=== PATIENT | male | born 1935 | race Caucasian/White ===

== ENCOUNTER 2017-09-20 14:00 | Outpatient (RCR) | payer MEDICARE, OTHER, SELFPAY | END 2017-09-20 23:59 | LOC: OT 14:00 | PROVIDERS: Visit Provider Surgery Plastic and Reconstructive Surgery | DX: S62.609A Fracture of unspecified phalanx of unspecified finger, initial encounter for closed fracture (principal) | CPT/HCPCS: G8990; G8991; G8992; 97140; 97165 ==

== ENCOUNTER 2017-10-18 11:00 | Outpatient (RCR) | payer MEDICARE, OTHER, SELFPAY | END 2017-10-18 11:03 | disposition home or self-care (01) | LOC: OT 11:00 | PROVIDERS: Visit Provider Surgery Plastic and Reconstructive Surgery | DX: S62.609A Fracture of unspecified phalanx of unspecified finger, initial encounter for closed fracture (principal) | CPT/HCPCS: 97140; 97164 ==

== ENCOUNTER → 2017-11-20 10:52 | Outpatient (CLI) | payer MEDICARE, OTHER, SELFPAY | PROVIDERS: PCP Internal Medicine; Visit Provider Internal Medicine | DX: I49.9 Cardiac arrhythmia, unspecified (principal); J44.1 Chronic obstructive pulmonary disease with (acute) exacerbation | CPT/HCPCS: 93005 ==

== ENCOUNTER → 2017-11-27 08:55 | Outpatient (POV) | payer MEDICARE, OTHER, SELFPAY | PROVIDERS: PCP Internal Medicine; Visit Provider Internal Medicine | DX: Z00.00 Encounter for general adult medical examination without abnormal findings (principal) ==

== ENCOUNTER 2017-12-14 11:30 | Observation (INO) | payer MEDICARE, OTHER, SELFPAY ==
[2017-12-14 11:37] VITALS: BP 135/71; PULSE 69; RESP 22; TEMP 36.3; O2SAT 95; BMI 31.1
--- NOTE | 2017-12-14 11:54 | XR_ITS ---
XR chest 2V COMPARISON: PA and lateral chest 06/25/2017 HISTORY: Persistent cough TECHNIQUE: PA and lateral chest FINDINGS: The lung fairbanks are well expanded. Again noted is the pleural pericardial scarring along left heart border and likely involving the lingula. In this is well seen on previous CT scan the chest 06/21/2017. The lung fairbanks appear to be clear of active infiltrate. There is mild relies cardio megaly with aortic tortuosity but there is no evidence of failure, there is no pleural fluid. There are small calcified right hilar nodes. There are prominent degenerative changes of both shoulders. IMPRESSION: Mild to moderate cardiomegaly, chronic scarring at the left lung base, no acute chest pathology noted
[2017-12-14 12:28] LABS: Eosinophils % 0.3 % (0.1-12.0); Hematocrit 48.5 % (42.0-52.0); Hemoglobin 15.3 g/dL (14.1-18.0); Lymphocytes # 0.4 K/mm3 (0.7-4.5); Lymphocytes % 3.9 K/mm3 (10-50); Mean Corpuscular HGB Conc 31.6 g/dL (31.8-35.4); Mean Corpuscular Hemoglobin 28.8 pg (27.0-31.2); Mean Corpuscular Volume 91.2 fl (80-94); Mean Platelet Volume 8.2 fl (7.4-10.4); Monocytes # 0.6 K/mm3 (0.1-1.0); Monocytes % 4.8 % (1.7-9.3); Neutrophils # 10.3 K/mm3 (1.8-7.8); Neutrophils % 90.8 % (37.0-80.0); Platelet Count 162 K/mm3 (142-424); Red Blood Count 5.32 M/mm3 (4.60-6.20); White Blood Count 11.4 K/mm3 (4.8-10.8)
[2017-12-14 12:29] LABS: MANUAL DIFFERENTIAL MANUAL DIFFERENTIAL (MANUAL DIFF)
[2017-12-14 12:40] LABS: Alanine Aminotransferase 37 U/L (12-78); Albumin Level 3.6 gm/dL (3.4-5.0); Albumin/Globulin Ratio 1.1 (1.1-1.8); Alkaline Phosphatase 70 U/L (46-116); Anion Gap 8.3 mEq/L (5-15); Aspartate Amino Transferase 15 U/L (15-37); Bilirubin,Total 0.6 mg/dL (0.2-1.0); Blood Urea Nitrogen 21 mg/dL (7-18); Calcium 8.9 mg/dL (8.5-10.1); Carbon Dioxide 33 mmol/L (21.0-32.0); Chloride 102 mmol/L (98-107); Creatinine Clearance Estimated 73 mL/min (0-300); Creatinine,Serum 0.83 mg/dL (0.70-1.30); Estimated Glomerular Filt Rate 89 ml/min (>60); GFR (African American) 108 ML/MIN (>60); Globulin 3.3 gm/dl (1.3-3.2); Glucose 127 mg/dL (74-106); Potassium 4.3 mmoL/L (3.5-5.1); Sodium 139 mmol/L (136-145); Total Protein,Serum 6.9 gm/dL (6.4-8.2)
[2017-12-14 12:57] LABS: Mycoplasma Pneumo IGM (Rapid) Non-Reactive (Non-Reactiv)
[2017-12-14 13:00] VITALS: PULSE 65; PULSE 66; O2SAT 97
[2017-12-14 13:09] LABS: Lymphocytes % 5 % (10-50); Monocytes % 7 % (2-9); Neutrophils % 88 % (42-76); Total Cells Counted 100
[2017-12-14 13:10] LABS: Platelet Estimate Normal; RBC Morphology Normal
--- NOTE | 2017-12-14 13:42 | CA_ITS ---
PROCEDURE: 2-D M-mode and color Doppler study INDICATIONS FOR THE TEST: Chest pain COPD+ Heart Murmur Tobacco Smokingex Palpitations Fatigue Syncope Edema+ Hypertension+Diabetes Mellitus Rheumatic Fever SOB+CABRERA Obesity+Hyperlipidemia+ Family History HD Additional History FRANKLYN, arrhythmia PATIENT INFORMATION HEIGHT: 66 WEIGHT: 193 GENDER: Male B/P: 135/71 2-D/M-MODE INTERPRETATION: 2-D MEASUREMENTS OBSERVED VALUES IN CMS Right Ventricular Dimension (RVDd) 2.2 Interventricular Septum (Thickness)(IVsd) 1.5 Left Ventricular Internal Dimensions(LVIDd) 5.1 Left Ventricular Posterior Wall (Thickness)(LVPWd) 1.5 Aortic Root 2.9 Aortic Cusp Separation 2.0 Left Atrial Dimensions (LAD) 4.4 2D 1. Left atrium is mildly enlarged, left ventricle is normal size, mild concentric left ventricular hypertrophy, visually estimated ejection fraction of 55% with no obvious regional wall motion abnormality. 2. The right atrium and right ventricle are relatively normal size and function. 3. The aortic valve is minimally thickened and fibrosed. 4. The mitral and tricuspid valve leaflets are grossly normal. 5. The pulmonic valve is poorly visualized. 6. No significant pericardial effusion noted. DOPPLER INTERROGATION: Doppler interrogation of the aortic, mitral and tricuspid valvular presence of mild mitral and tricuspid regurgitation, tricuspid regurgitant jet velocity insufficient for calculation of the right ventricular systolic pressure, grade 1 diastolic dysfunction seen with tissue Doppler evidence of raised left atrial pressure. CONCLUSION: 1. Mildly enlarged left atrium, normal left ventricular size, mild concentric left ventricular hypertrophy, visually estimated ejection fraction 55% with no obvious regional wall motion abnormality, grade 1 diastolic dysfunction seen with tissue Doppler evidence of raised left atrial pressure. 2. Mild mitral and tricuspid regurgitation 3. No significant pericardial effusion noted.
--- NOTE | 2017-12-14 13:44 | HMH.HP ---
*Admission Date: 12/14/17 *Chief complaint: Persistent dyspnea/swelling *History of present illness: 82-year-old white male, long-standing history of emphysema with nocturnal oxygen requirement who has seen Dr. Gene Antony in the office for a couple of weeks for increasing COPD problems. He has been on amoxicillin and azithromycin with steroids orally and unfortunately has failed to improve. Came to the office today, tachypneic, dyspneic, admitted to hospital for IV therapy and enhanced pulmonary toilet. He states he has been sick over the past couple weeks. Notes that he is also had leg swelling which is unusual for him. [facility] History Medical History: Reports:: Hyperlipidemia, Hypertension Denies:: Cancer, Diabetes Mellitus Type 1, Diabetes Mellitus Type 2, MRSA Other Medical History: Reports: Arthritis Other Surgeries: Yes: Colonoscopy, EGD Amputation: No Fractures: No - *Social History Educational Level: Attended College Smoking Status: Former smoker Tobacco Type: cigarettes Alcohol Intake: never Occupational Status: retired Housing: house Household Members: spouse - Psychiatric History Expresses thoughts of harming self/others: None Suicide Plan Description: No Plan *Family Hx:: Asthma, Hyperlipidemia, Hypertension Review of Systems - Review of Systems Review of systems:: unable to obtain, other, pertinent systems reviewed and negative unless documented below - Constitutional Reports lack of energy, Reports malaise - Eyes Denies change in vision, Denies double vision - ENT Denies abnormal hearing - *Cardiovascular Reports shortness of breath, Reports shortness of breath with activity, Reports irregular heart rhythm, Reports leg swelling, Denies chest pain, Denies chest pain at rest, Denies lightheadedness, Denies shortness of breath when lying down, Denies rapid, pounding, or irregular heartbeat - *Respiratory Reports change in phlegm color, Reports chest congestion, Reports cough, Reports shortness of breath, Reports shortness of breath with activity, Reports excessive phlegm production - *Gastrointestinal Denies abdominal pain, Denies belching, Denies bloating, Denies heartburn, Denies vomiting blood, Denies black, tarry stools - *Genitourinary Denies difficulty urinating, Denies painful urination - *Musculoskeletal Denies abnormal walking, Denies joint pain - *Neurologic Denies abnormal walking, Denies abnormal hearing - Psychiatric Denies abnormal sleep pattern - Endocrine Denies cold intolerance, Denies excessive sweating - Hematologic/Lymphatic Denies easy bleeding, Denies easy bruising Meds Home Medications Medication Instructions Recorded Confirmed Type Albuterol Sulfate [Albuterol 2.5 mg IH BID PRN 12/14/17 12/14/17 History 0.083% 2.5mg/3mL neb] Aspirin [Aspirin 81mg chewable 81 mg PO DAILY 12/14/17 12/14/17 History tab] Azelastine HCl [Azelastine Nasal 0.1 % NS BID 12/14/17 12/14/17 History [place] 30mL Bottle] Bisoprolol Fumarate [Zebeta 5mg 2.5 mg PO DAILY 12/14/17 12/14/17 History tablet] Furosemide [Furosemide 40MG tAB] 40 mg PO DAILY PRN 12/14/17 12/14/17 History Lisinopril [Lisinopril 20mg Tab] 20 mg PO DAILY 12/14/17 12/14/17 History Multivitamin [One Daily] 1 each PO DAILY 12/14/17 12/14/17 History Naproxen Sodium 220 mg PO DAILY PRN 12/14/17 12/14/17 History Pantoprazole Sodium [Protonix 40mg 40 mg PO DAILY 12/14/17 12/14/17 History tablet] Potassium Chloride [Klor-con 20 20 meq PO DAILY 12/14/17 12/14/17 History mEq tablet] Rosuvastatin Calcium 20 mg PO DAILY 12/14/17 12/14/17 History diazePAM [diazePAM 5mg Tablet] 5 mg PO BID PRN 12/14/17 12/14/17 History predniSONE [Deltasone 10mg 10 mg PO DAILY 12/14/17 12/14/17 History tablet] Allergies Allergy/AdvReac Type Severity Reaction Status Date / Time DUST Allergy Unknown Uncoded 09/18/17 14:51 HAY Allergy Unknown Uncoded 09/18/17 14:51 Exam Vital signs and
--- NOTE | 2017-12-14 13:47 | P.HP_ITS ---
*Admission Date: 12/14/17 *Chief complaint: Persistent dyspnea/swelling *History of present illness: 82-year-old white male, long-standing history of emphysema with nocturnal oxygen requirement who has seen Dr. Gene Antony in the office for a couple of weeks for increasing COPD problems. He has been on amoxicillin and azithromycin with steroids orally and unfortunately has failed to improve. Came to the office today, tachypneic, dyspneic, admitted to hospital for IV therapy and enhanced pulmonary toilet. He states he has been sick over the past couple weeks. Notes that he is also had leg swelling which is unusual for him. [facility] History Medical History: Reports:: Hyperlipidemia, Hypertension Denies:: Cancer, Diabetes Mellitus Type 1, Diabetes Mellitus Type 2, MRSA Other Medical History: Reports: Arthritis Other Surgeries: Yes: Colonoscopy, EGD Amputation: No Fractures: No - *Social History Educational Level: Attended College Smoking Status: Former smoker Tobacco Type: cigarettes Alcohol Intake: never Occupational Status: retired Housing: house Household Members: spouse - Psychiatric History Expresses thoughts of harming self/others: None Suicide Plan Description: No Plan *Family Hx:: Asthma, Hyperlipidemia, Hypertension Review of Systems - Review of Systems Review of systems:: unable to obtain, other, pertinent systems reviewed and negative unless documented below - Constitutional Reports lack of energy, Reports malaise - Eyes Denies change in vision, Denies double vision - ENT Denies abnormal hearing - *Cardiovascular Reports shortness of breath, Reports shortness of breath with activity, Reports irregular heart rhythm, Reports leg swelling, Denies chest pain, Denies chest pain at rest, Denies lightheadedness, Denies shortness of breath when lying down , Denies rapid, pounding, or irregular heartbeat - *Respiratory Reports change in phlegm color, Reports chest congestion, Reports cough, Reports shortness of breath, Reports shortness of breath with activity, Reports excessive phlegm production - *Gastrointestinal Denies abdominal pain, Denies belching, Denies bloating, Denies heartburn, Denies vomiting blood, Denies black, tarry stools - *Genitourinary Denies difficulty urinating, Denies painful urination - *Musculoskeletal Denies abnormal walking, Denies joint pain - *Neurologic Denies abnormal walking, Denies abnormal hearing - Psychiatric Denies abnormal sleep pattern - Endocrine Denies cold intolerance, Denies excessive sweating - Hematologic/Lymphatic Denies easy bleeding, Denies easy bruising Meds Home Medications Medication Instructions Recorded Confirmed Type Albuterol Sulfate [Albuterol 2.5 mg IH BID PRN 12/14/17 12/14/17 History 0.083% 2.5mg/3mL neb] Aspirin [Aspirin 81mg chewable 81 mg PO DAILY 12/14/17 12/14/17 History tab] Azelastine HCl [Azelastine Nasal 0.1 % NS BID 12/14/17 12/14/17 History [place] 30mL Bottle] Bisoprolol Fumarate [Zebeta 5mg 2.5 mg PO DAILY 12/14/17 12/14/17 History tablet] Furosemide [Furosemide 40MG tAB] 40 mg PO DAILY PRN 12/14/17 12/14/17 History Lisinopril [Lisinopril 20mg Tab] 20 mg PO DAILY 12/14/17 12/14/17 History Multivitamin [One Daily] 1 each PO DAILY 12/14/17 12/14/17 History Naproxen Sodium 220 mg PO DAILY PRN 12/14/17 12/14/17 History Pantoprazole Sodium [Protonix 40mg 40 mg PO DAILY 12/14/17 12/14/17 History tablet]
[2017-12-14 15:30] VITALS: BP 134/71; PULSE 70; RESP 20; TEMP 36.9; O2SAT 96
--- NOTE | 2017-12-14 19:29 | PC.NURSE ---
report given to chapito
[2017-12-14 19:39] VITALS: BP 151/75; PULSE 68; RESP 20; TEMP 36.4; O2SAT 96
[2017-12-14 20:00] VITALS: O2SAT 96
[2017-12-14 20:23] VITALS: O2SAT 97
[2017-12-14 20:34] LABS: POC Glucose,Bedside 146 mg/dL (70-110)
[2017-12-15] VITALS (8 sets, daily range): BP systolic 98–156; BP diastolic 50–97; PULSE 62–85; RESP 20–22; TEMP 36.4–36.8; O2SAT 1–98
--- NOTE | 2017-12-15 03:49 | PC.NURSE ---
PATIENT HAS SLEPT ON AND OFF THIS SHIFT. CONTINUES WITH INTERMITTEN PRODUCTIVE COUGH WITH SMALL AMOUNTS OF THICK, YELLOW SPUTUM NOTED. PATIENT HAS SOA AND AUDIBLE WHEEZES ON EXERTION WITHOUT DISTRESS. AMBULATES INDEPENDENTLY IN ROOM. PATIENT CURRENTLY IN BED SLEEPING. NO OTHER PROBLEMS NOTED AT THIS TIME. VSS. WILL CONTINUE TO MONITOR.
[2017-12-15 07:15] LABS: POC Glucose,Bedside 129 mg/dL (70-110)
--- NOTE | 2017-12-15 07:18 | P.PN_ITS ---
Internal Medicine - PN: Subj *Date: 12/15/17 *Time: 07:17 Interval history: Patient's overall improvement in his level of dyspnea. He denies any shortness of breath with ambulating short distances this morning. Exam Vital signs and Labs for Last 24 Hours: Temp Pulse Resp BP Pulse Ox 97.6 F 75 20 156/97 98 12/15/17 04:00 12/15/17 06:12 12/15/17 04:00 12/15/17 04:00 12/15/17 06:12 Laboratory Results - last 24 hr 12/14/17 12:15: WBC 11.4 H, RBC 5.32, Hgb 15.3, Hct 48.5, MCV 91.2, MCH 28.8, MCHC 31.6 L, RDW 13.0, Plt Count 162, MPV 8.2, Neut % (Auto) 90.8 H, Lymph % ( Auto) 3.9 L, Leslie % (Auto) 4.8, Eos % (Auto) 0.3, Baso % (Auto) 0.0 L, Neut # ( Auto) 10.3 H, Lymph # (Auto) 0.4 L, Leslie # (Auto) 0.6, Eos # (Auto) 0.0, Baso # (Auto) 0.0, Total Counted 100, Neutrophils % (Manual) 88 H, Lymphocytes % ( Manual) 5 L, Monocytes % (Manual) 7, Platelet Estimate Normal, RBC Morphology Normal 12/14/17 12:15: Sodium 139, Potassium 4.3, Chloride 102, Carbon Dioxide 33 H, Anion Gap 8.3, BUN 21 H, Creatinine 0.83, Estimated Creat Clear 73, Estimated GFR 89, Est GFR ( Amer) 108, Glucose 127 H, Calcium 8.9, Total Bilirubin 0.6, AST 15, ALT 37, Alkaline Phosphatase 70, Total Protein 6.9, Albumin 3.6, Globulin 3.3 H, Albumin/Globulin Ratio 1.1 12/14/17 12:15: Mycoplasma pneumon IgM Non-reactive 12/14/17 12:30: Influenza Type A Ag Negative, Influenza Type B Ag Negative 12/14/17 20:16: POC Glucose 146 12/15/17 07:02: POC Glucose 129 I & O for Last 24 hours: Intake & Output 03/14/18 12/13/17 12/14/17 12/15/17 11:59 11:59 11:59 11:59 Intake Total 2091 / 2091 Output Total 3450 / 3450 Balance -1358 / -1358 Weight 193 lb 4 oz Microbiology Reports for the Last 24 Hours: Microbiology 12/14/17 17:00 Sputum - Expectorated Sputum Gram Stain - Final Narrative: He appears comfortable. He has some mild conversational dyspnea. Lung exam reveals diffuse wheezes Assessment and Plan (1) COPD with acute exacerbation Current visit: Yes Status: Acute Category: Medical Code(s): J44.1 - Chronic obstructive pulmonary disease with (acute) exacerbation (2) Peripheral edema Current visit: Yes Status: Acute Category: Medical Code(s): R60.9 - Edema , unspecified (3) History of irregular heartbeat Current visit: Yes Status: Acute Category: Medical Code(s): Z86.79 - Personal history of other diseases of the circulatory system (4) Obstructive sleep apnea Current visit: Yes Status: Acute Category: Medical Code(s): G47.33 - Obstructive sleep apnea (adult) (pediatric) (5) Hypertension, essential Current visit: Yes Status: Acute Category: Medical Code(s): I10 - Essential (primary) hypertension (6) Generalized anxiety disorder Current visit: Yes Status: Acute Category: Medical Code(s): F41.1 - Generalized anxiety disorder - Assessment and plan all Dx Assessment and Plan for all problems:: No change to medical care. Patient showing signs of early improvement.
--- NOTE | 2017-12-15 07:30 | PC.NURSE ---
REPORT GIVEN TO Marlee MENARD W/C
[2017-12-15 07:57] LABS: Alanine Aminotransferase 34 U/L (12-78); Albumin Level 3.3 gm/dL (3.4-5.0); Albumin/Globulin Ratio 0.9 (1.1-1.8); Alkaline Phosphatase 59 U/L (46-116); Anion Gap 11.4 mEq/L (5-15); Aspartate Amino Transferase 10 U/L (15-37); Bilirubin,Total 0.6 mg/dL (0.2-1.0); Blood Urea Nitrogen 17 mg/dL (7-18); Calcium 8.7 mg/dL (8.5-10.1); Carbon Dioxide 32 mmol/L (21.0-32.0); Chloride 101 mmol/L (98-107); Creatinine Clearance Estimated 73 mL/min (0-300); Estimated Glomerular Filt Rate 81 ml/min (>60); GFR (African American) 98 ML/MIN (>60); Globulin 3.5 gm/dl (1.3-3.2); Glucose 139 mg/dL (74-106); Potassium 4.4 mmoL/L (3.5-5.1); Sodium 140 mmol/L (136-145); Total Protein,Serum 6.8 gm/dL (6.4-8.2)
[2017-12-15 08:03] LABS: Basophils % 0.1 % (0.1-2.0); Eosinophils % 0.1 % (0.1-12.0); Hematocrit 48.9 % (42.0-52.0); Hemoglobin 15.4 g/dL (14.1-18.0); Lymphocytes # 0.5 K/mm3 (0.7-4.5); Mean Corpuscular HGB Conc 31.5 g/dL (31.8-35.4); Mean Corpuscular Hemoglobin 28.9 pg (27.0-31.2); Mean Corpuscular Volume 91.5 fl (80-94); Mean Platelet Volume 8.6 fl (7.4-10.4); Monocytes # 0.3 K/mm3 (0.1-1.0); Monocytes % 2.1 % (1.7-9.3); Neutrophils % 93.7 % (37.0-80.0); Platelet Count 168 K/mm3 (142-424); Red Blood Count 5.34 M/mm3 (4.60-6.20); White Blood Count 11.7 K/mm3 (4.8-10.8)
[2017-12-15 08:32] LABS: MANUAL DIFFERENTIAL MANUAL DIFFERENTIAL (MANUAL DIFF)
[2017-12-15 09:43] LABS: Lymphocytes % 3 % (10-50); Neutrophils % 97 % (42-76); Platelet Estimate Normal; RBC Morphology Normal; Total Cells Counted 100
[2017-12-15 11:53] LABS: POC Glucose,Bedside 149 mg/dL (70-110)
--- NOTE | 2017-12-15 13:16 | HMH.PHAVTE ---
[facility] Pharmacy VTE Monitoring - Patient Demographics Admission date: 12/15/17 Report Date: 12/15/17 Time: 13:17 Allergies/Adverse Reactions: Patient Allergies DUST Allergy (Unknown, Uncoded 09/18/17 14:51) HAY Allergy (Unknown, Uncoded 09/18/17 14:51) Height: 1.68 m Weight: 87.657 kg Patient Problems: Current Active Problems COPD with acute exacerbation (Acute) Peripheral edema (Acute) History of irregular heartbeat (Acute) Obstructive sleep apnea (Acute) Hypertension, essential (Acute) Generalized anxiety disorder (Acute) - VTE Risk Labs: VTE Related Lab Results Hgb 15.4 g/dL (14.1-18.0) 12/15/17 06:05 Hct 48.9 % (42.0-52.0) 12/15/17 06:05 Plt Count 168 K/mm3 (142-424) 12/15/17 06:05 BUN 17 mg/dL (7-18) 12/15/17 06:00 Creatinine 0.90 mg/dL (0.70-1.30) 12/15/17 06:00 Estimated Creat Clear 73 mL/min (0-300) 12/15/17 06:00 VTE Score: 3 VTE Risk Level: Low Risk - Prophylaxis Location of Applied Device: Refused - VTE Diagnosis Confirmed Comment: JULIENNE PUGH ORDERED
[2017-12-15 16:38] LABS: POC Glucose,Bedside 167 mg/dL (70-110)
--- NOTE | 2017-12-15 18:58 | PC.NURSE ---
Report to be given to Marlee Ron RN
[2017-12-16] VITALS (8 sets, daily range): BP systolic 119–154; BP diastolic 71–77; PULSE 60–83; RESP 18–21; TEMP 36.2–36.5; O2SAT 90–96
[2017-12-16 00:39] LABS: POC Glucose,Bedside 167 mg/dL (70-110)
--- NOTE | 2017-12-16 03:39 | PC.NURSE ---
NO COMPLAINTS STATED. TOLERATED 1LNC WELL. SCATTERED RHONCHI AND WHEEZING NOTED ON AUSCULTATION OF LUNG SOUNDS. VSS. WILL CONTINUE MONITOR.
[2017-12-16 06:37] LABS: POC Glucose,Bedside 134 mg/dL (70-110)
--- NOTE | 2017-12-16 07:16 | PC.NURSE ---
REPORT GIVEN TO Marlee MENARD W/C
--- NOTE | 2017-12-16 08:31 | HMH.ACPN2 ---
Internal Medicine - PN: Subj *Date: 12/16/17 *Time: 08:31 Interval history: Patient reports feeling the same today as he did yesterday morning. His cough is now productive of large amounts of cohen to dark brown sputum. He does have dyspnea with exertion about the room. Exam Vital signs and Labs for Last 24 Hours: Temp Pulse Resp BP Pulse Ox 97.4 F L 83 20 121/72 93 L 12/16/17 07:37 12/16/17 07:37 12/16/17 07:37 12/16/17 07:37 12/16/17 07:37 Laboratory Results - last 24 hr 12/15/17 06:05: WBC 11.7 H, RBC 5.34, Hgb 15.4, Hct 48.9, MCV 91.5, MCH 28.9, MCHC 31.5 L, RDW 13.0, Plt Count 168, MPV 8.6, Neut % (Auto) 93.7 H, Lymph % (Auto) 4.0 L, [place] % (Auto) 2.1, Eos % (Auto) 0.1, Baso % (Auto) 0.1, Neut # (Auto) 11.0 H, Lymph # (Auto) 0.5 L, Stephen[place] # (Auto) 0.3, Eos # (Auto) 0.0, Baso # (Auto) 0.0, Total Counted 100, Neutrophils % (Manual) 97 H, Lymphocytes % (Manual) 3 L, Platelet Estimate Normal, RBC Morphology Normal 12/15/17 11:38: POC Glucose 149 12/15/17 16:07: POC Glucose 167 12/15/17 21:17: POC Glucose 167 12/16/17 05:50: POC Glucose 134 I & O for Last 24 hours: Intake & Output 12/13/17 12/14/17 12/15/17 12/16/17 11:59 11:59 11:59 11:59 Intake Total 2572 / 2572 2459 / 2459 Output Total 3450 / 3450 3725 / 3725 Balance -878 / -878 -1266 / -1266 Weight 193 lb 4 oz 193 lb 4 oz Microbiology Reports for the Last 24 Hours: Microbiology 12/14/17 17:00 Sputum - Expectorated Sputum Gram Stain - Final 12/14/17 17:00 Sputum - Expectorated Sputum Sputum Culture - Final Normal Respiratory Disha 12/14/17 12:15 Blood Blood Culture - Preliminary NO GROWTH AFTER 24 HOURS 12/14/17 12:15 Blood Blood Culture - Preliminary NO GROWTH AFTER 24 HOURS Narrative: He sitting up comfortably on the side of the bed. Lung exam is unchanged from yesterday with diffuse rhonchi and expiratory wheezes. Aeration may be slightly improved. Heart has a regular rate and rhythm. Assessment and Plan (1) COPD with acute exacerbation Current visit: Yes Status: Acute Category: Medical Code(s): J44.1 - Chronic obstructive pulmonary disease with (acute) exacerbation (2) Peripheral edema Current visit: Yes Status: Acute Category: Medical Code(s): R60.9 - Edema, unspecified (3) History of irregular heartbeat Current visit: Yes Status: Acute Category: Medical Code(s): Z86.79 - Personal history of other diseases of the circulatory system (4) Obstructive sleep apnea Current visit: Yes Status: Acute Category: Medical Code(s): G47.33 - Obstructive sleep apnea (adult) (pediatric) (5) Hypertension, essential Current visit: Yes Status: Acute Category: Medical Code(s): I10 - Essential (primary) hypertension (6) Generalized anxiety disorder Current visit: Yes Status: Acute Category: Medical Code(s): F41.1 - Generalized anxiety disorder - Assessment and plan all Dx Assessment and Plan for all problems:: Continue current medical care and encourage ambulation
[2017-12-16 12:02] LABS: POC Glucose,Bedside 153 mg/dL (70-110)
[2017-12-16 17:02] LABS: POC Glucose,Bedside 144 mg/dL (70-110)
--- NOTE | 2017-12-16 17:51 | PC.NURSE ---
Wheezes and rhonchi noted t/o lungs. Pt remains on 1L nasal cannula w/ o2 sats running in mid 90's. He reports a productive cough w/thick greenish yellow sputum. PRN cough meds administered x2 thus far. He has ambulated in room with some shortness of breath noted. No other concerns at this time. Will continue to monitor.
[2017-12-17] VITALS (9 sets, daily range): BP systolic 119–149; BP diastolic 55–91; PULSE 60–98; RESP 20–22; TEMP 36.3–36.6; O2SAT 86–94; BMI 31.0
[2017-12-17 01:50] LABS: POC Glucose,Bedside 184 mg/dL (70-110)
--- NOTE | 2017-12-17 04:09 | PC.NURSE ---
REQUESTED PRN COUGH MEDICATION, MEDICATED PT WITH PRN COUGH MED, NO FURTHER COMPLAINTS STATED FOLLOWING ADMINISTRATION. PRODUCTIVE COUGH WAS NOTED WITH GREEN, THICK SPUTUM THIS SHIFT. 1LNC TOLERATED WELL. RHONCHI AUSCULTATED T/O WITH SCATTERED WHEEZING PER AUSCULTATION OF LUNG SOUNDS. FOLLOWING AMBULATING IN ROOM, PT WAS STATED SOA, PT REQUESTED PRN BREATHING TREATMENT, WITH REST AND BREATHING TREATMENT PT STATED I FEEL BETTER. I AM NOT SOA LIKE I WAS. +1 EDEMA NOTED ON LLE. VSS. WILL CONTINUE TO MONITOR.
[2017-12-17 06:25] LABS: POC Glucose,Bedside 227 mg/dL (70-110)
--- NOTE | 2017-12-17 07:17 | PC.NURSE ---
REPORT GIVEN TO Adelina KRUEGER W/C
--- NOTE | 2017-12-17 07:21 | XR_ITS ---
XR chest 2V COMPARISON: PA and lateral chest 12/14/2017 HISTORY: Wheezing, shortness of breath TECHNIQUE: PA and lateral chest FINDINGS: There is a somewhat poor inspiration. Again noted is pleural pericardial scarring along left heart border. The lung [place] are clear of active infiltrate. There is mild thickening of the major fissure however this is been noted previously. Cardiac size is likely normal considering the poor inspiration. There are prominent degenerative changes of both shoulders with high riding humeral heads and marked narrowing of sclerosis of the glenohumeral joints. IMPRESSION: Nonacute chest findings
--- NOTE | 2017-12-17 08:10 | P.PN_ITS ---
Internal Medicine - PN: Subj *Date: 12/17/17 *Time: 08:56 Interval history: No events overnight but he reports that he still doesn't feel much better due to dyspnea. Cough is productive. He denies pain. Exam Vital signs and Labs for Last 24 Hours: Temp Pulse Resp BP Pulse Ox 97.6 F 64 20 140/71 92 L 12/17/17 07:30 12/17/17 07:30 12/17/17 07:30 12/17/17 07:30 12/17/17 07:30 Laboratory Results - last 24 hr 12/16/17 11:53: POC Glucose 153 12/16/17 16:44: POC Glucose 144 12/16/17 20:17: POC Glucose 184 12/17/17 06:06: POC Glucose 227 I & O for Last 24 hours: Intake & Output 12/14/17 12/15/17 12/16/17 12/17/17 11:59 11:59 11:59 11:59 Intake Total 2572 / 2572 2459 / 2459 2333 / 2333 Output Total 3450 / 3450 3725 / 3725 3700 / 3700 Balance -878 / -878 -1266 / -1266 -1367 / -1367 Weight 193 lb 4 oz 193 lb 4 oz Microbiology Reports for the Last 24 Hours: Microbiology 12/14/17 12:15 Blood Blood Culture - Preliminary NO GROWTH AFTER 48 HOURS 12/14/17 12:15 Blood Blood Culture - Preliminary NO GROWTH AFTER 48 HOURS 12/14/17 17:00 Sputum - Expectorated Sputum Gram Stain - Final 12/14/17 17:00 Sputum - Expectorated Sputum Sputum Culture - Final Normal Respiratory Disha Narrative: Pleasant male, upright on bedside eating breakfast. Heart with RRR, lungs with diffuse rhonchi and wheezing and mildly increased work of breathing. Abdomen is obese, nontender, BS present, mildly distended. Trace edema bilateral lower extremities. Alert and oriented x 3. Assessment and Plan (1) COPD with acute exacerbation Current visit: Yes Status: Acute Category: Medical Code(s): J44.1 - Chronic obstructive pulmonary disease with (acute) exacerbation (2) Peripheral edema Current visit: Yes Status: Acute Category: Medical Code(s): R60.9 - Edema , unspecified (3) History of irregular heartbeat Current visit: Yes Status: Acute Category: Medical Code(s): Z86.79 - Personal history of other diseases of the circulatory system (4) Obstructive sleep apnea Current visit: Yes Status: Acute Category: Medical Code(s): G47.33 - Obstructive sleep apnea (adult) (pediatric) (5) Hypertension, essential Current visit: Yes Status: Acute Category: Medical Code(s): I10 - Essential (primary) hypertension (6) Generalized anxiety disorder Current visit: Yes Status: Acute Category: Medical Code(s): F41.1 - Generalized anxiety disorder - Assessment and plan all Dx Assessment and Plan for all problems:: Repeat CXR, CBC, BMP this morning and make adjustments to orders as indicated. Schedule lasix daily instead of PRN. Sputum and blood cultures are negative to date. Will also check D-Dimer and if elevated, check CT PE protocol
[2017-12-17 08:11] LABS: Basophils % 0.1 % (0.1-2.0); Eosinophils # 0.1 K/mm3 (0.0-0.4); Eosinophils % 0.4 % (0.1-12.0); Hematocrit 47.2 % (42.0-52.0); Hemoglobin 14.9 g/dL (14.1-18.0); Lymphocytes # 0.2 K/mm3 (0.7-4.5); Lymphocytes % 1.6 K/mm3 (10-50); Mean Corpuscular HGB Conc 31.6 g/dL (31.8-35.4); Mean Corpuscular Volume 91.7 fl (80-94); Mean Platelet Volume 8.2 fl (7.4-10.4); Monocytes # 0.4 K/mm3 (0.1-1.0); Monocytes % 2.9 % (1.7-9.3); Neutrophils # 11.8 K/mm3 (1.8-7.8); Neutrophils % 94.9 % (37.0-80.0); Platelet Count 166 K/mm3 (142-424); Red Blood Count 5.14 M/mm3 (4.60-6.20); White Blood Count 12.5 K/mm3 (4.8-10.8)
[2017-12-17 08:13] LABS: MANUAL DIFFERENTIAL MANUAL DIFFERENTIAL (MANUAL DIFF)
[2017-12-17 08:21] LABS: POC Glucose,Bedside 186 mg/dL (70-110)
[2017-12-17 08:47] LABS: Lymphocytes % 1 % (10-50); Monocytes % 3 % (2-9); Neutrophils % 96 % (42-76); Platelet Estimate Normal; RBC Morphology Normal; Total Cells Counted 100
--- NOTE | 2017-12-17 09:20 | HMH.ACPN ---
Internal Medicine - PN: Subj *Date: 12/17/17 *Time: 09:20 Exam Vital signs and Labs for Last 24 Hours: Temp Pulse Resp BP Pulse Ox 97.6 F 64 20 140/71 92 L 12/17/17 07:30 12/17/17 07:30 12/17/17 07:30 12/17/17 07:30 12/17/17 07:30 Laboratory Results - last 24 hr 12/14/17 16:27: POC Glucose 186 12/16/17 11:53: POC Glucose 153 12/16/17 16:44: POC Glucose 144 12/16/17 20:17: POC Glucose 184 12/17/17 06:06: POC Glucose 227 12/17/17 07:49: WBC 12.5 H, RBC 5.14, Hgb 14.9, Hct 47.2, MCV 91.7, MCH 29.0, MCHC 31.6 L, RDW 13.0, Plt Count 166, MPV 8.2, Neut % (Auto) 94.9 H, Lymph % (Auto) 1.6 L, [place] % (Auto) 2.9, Eos % (Auto) 0.4, Baso % (Auto) 0.1, Neut # (Auto) 11.8 H, Lymph # (Auto) 0.2 L, [place] # (Auto) 0.4, Eos # (Auto) 0.1, Baso # (Auto) 0.0, Total Counted 100, Neutrophils % (Manual) 96 H, Lymphocytes % (Manual) 1 L, Monocytes % (Manual) 3, Platelet Estimate Normal, RBC Morphology Normal I & O for Last 24 hours: Intake & Output 12/14/17 12/15/17 12/16/17 12/17/17 23:59 23:59 23:59 23:59 Intake Total 913 / 913 2559 / 2559 2519 / 2519 1373 / 1373 Output Total 1999 / 1999 3250 / 3250 3375 / 3375 2250 / 2250 Balance -1087 / -1087 -691 / -691 -856 / -856 -877 / -877 Weight 87.657 kg 87.657 kg Microbiology Reports for the Last 24 Hours: Microbiology 12/14/17 12:15 Blood Blood Culture - Preliminary NO GROWTH AFTER 48 HOURS 12/14/17 12:15 Blood Blood Culture - Preliminary NO GROWTH AFTER 48 HOURS 12/14/17 17:00 Sputum - Expectorated Sputum Gram Stain - Final 12/14/17 17:00 Sputum - Expectorated Sputum Sputum Culture - Final Normal Respiratory Disha Assessment and Plan (1) COPD with acute exacerbation Current visit: Yes Status: Acute Category: Medical Code(s): J44.1 - Chronic obstructive pulmonary disease with (acute) exacerbation (2) Peripheral edema Current visit: Yes Status: Acute Category: Medical Code(s): R60.9 - Edema, unspecified (3) History of irregular heartbeat Current visit: Yes Status: Acute Category: Medical Code(s): Z86.79 - Personal history of other diseases of the circulatory system (4) Obstructive sleep apnea Current visit: Yes Status: Acute Category: Medical Code(s): G47.33 - Obstructive sleep apnea (adult) (pediatric) (5) Hypertension, essential Current visit: Yes Status: Acute Category: Medical Code(s): I10 - Essential (primary) hypertension (6) Generalized anxiety disorder Current visit: Yes Status: Acute Category: Medical Code(s): F41.1 - Generalized anxiety disorder The patient's infection will respond to the chosen ABx?: Yes Is the patient receiving the right drug, dose, and route?: Yes Could a more targeted ABx be ordered?: No (CULTURES NEGATIVE)
[2017-12-17 09:27] LABS: D-Dimer 681 (0-400)
--- NOTE | 2017-12-17 09:35 | CT_ITS ---
CT angio chest COMPARISON: CT scan chest 06/21/2017 HISTORY: Shortness of breath, elevated d-dimer TECHNIQUE: Multiaxial scans obtained from the thoracic inlet the hemidiaphragms after rapid injection of IV contrast. Sagittal and coronal reformats were evaluated as well. FINDINGS: The lung [place] are fairly well-expanded. There is no acute infiltrate seen. There is mild thickening of the major fissure left side and this was noted previous study. There is moderate generalized cardio megaly with is no pulmonary congestion. There is moderate aortic tortuosity. There is prominent coronary Artery calcification. There are mild multilevel degenerative changes of the thoracic spine. There is minimal bronchiectasis in the right lower lobe. There is moderate vascular opacification and I see no definite evidence of pulmonary emboli. There is moderate fat in the superior mediastinum but there is no abnormal lymphadenopathy. IMPRESSION: Negative for PE, mild bronchiectasis right lower lobe without definite pneumonic infiltrate seen in either lung
[2017-12-17 09:50] LABS: Blood Urea Nitrogen 30 mg/dL (7-18); Carbon Dioxide 32 mmol/L (21.0-32.0); Chloride 98 mmol/L (98-107); Creatinine Clearance Estimated 71 mL/min (0-300); Creatinine,Serum 1.03 mg/dL (0.70-1.30); Estimated Glomerular Filt Rate 69 ml/min (>60); GFR (African American) 84 ML/MIN (>60); Glucose 234 mg/dL (74-106); Sodium 139 mmol/L (136-145)
[2017-12-17 11:19] LABS: POC Glucose,Bedside 165 mg/dL (70-110)
[2017-12-17 16:38] LABS: POC Glucose,Bedside 177 mg/dL (70-110)
--- NOTE | 2017-12-17 19:10 | PC.NURSE ---
report given to prem daniel
[2017-12-18] VITALS (10 sets, daily range): BP systolic 137–154; BP diastolic 73–86; PULSE 61–106; RESP 20–21; TEMP 36.5–37; O2SAT 88–95
[2017-12-18 02:19] LABS: POC Glucose,Bedside 217 mg/dL (70-110)
--- NOTE | 2017-12-18 02:37 | PC.NURSE ---
PT IS ALERT AND ORIENTED X 3. PT IS VERY HARD OF HEARING. INSP/EXP COARSE WHEEZES AND RHONCHI SCATTERED THROUGHOUT LUNG STARR. PT BECOMES VISIBLY DYSPNEIC WITH MINIMAL EXERTION. ENCOURAGED TO KEEP O2 IN PLACE WHEN GETTING UP TO VOID, VERBALIZED UNDERSTANDING. PRODUCTIVE COUGH WITH THICK, YELLOWISH V[place]O SPUTUM NOTED. HAS DENIES PAIN OR DISCOMFORT THROUGHOUT THE SHIFT, PRN DIAZEPAM GIVEN AT HS FOR ANXIETY AND SLEEP, MED EFFECTIVE, PT HAS RESTED WELL. ONLY AWAKENING TO VOID, THEN RETURNS TO SLEEP. VOIDING CLEAR, YELLOW URINE. 2+ PITTING EDEMA NOTED BLE. IV SITES PATENT, NO REDNESS OR EDEMA NOTED. DRG C/D/I. LYING IN BED SLEEPING, NO ACUTE DISTRESS NOTED. CALL LIGHT WITHIN REACH, WILL CONTINUE TO MONITOR.
[2017-12-18 06:45] LABS: POC Glucose,Bedside 171 mg/dL (70-110)
--- NOTE | 2017-12-18 08:30 | P.PN_ITS ---
Internal Medicine - PN: Subj *Date: 12/18/17 *Time: 08:30 Interval history: Patient states I feel a little better today. Continues to have significant shortness of breath with eating and ambulation. Alert and oriented x3. Rate and rhythm regular. Lung sounds with rhonchi and wheezes throughout, air movement improved. 1-2+ BLE edema Exam Vital signs and Labs for Last 24 Hours: Temp Pulse Resp BP Pulse Ox 98.2 F 89 20 137/73 94 L 12/18/17 07:43 12/18/17 07:43 12/18/17 07:43 12/18/17 07:43 12/18/17 07:43 Laboratory Results - last 24 hr 12/17/17 07:49: Total Counted 100, Neutrophils % (Manual) 96 H, Lymphocytes % ( Manual) 1 L, Monocytes % (Manual) 3, Platelet Estimate Normal, RBC Morphology Normal 12/17/17 07:49: Sodium 139, Potassium 4.0, Chloride 98, Carbon Dioxide 32, Anion Gap 13.0, BUN 30 H D, Creatinine 1.03, Estimated Creat Clear 71, Estimated GFR 69, Est GFR ( Amer) 84, Glucose 234 H 12/17/17 07:49: D-Dimer 681 H* 12/17/17 11:01: POC Glucose 165 12/17/17 16:19: POC Glucose 177 12/17/17 20:27: POC Glucose 217 12/18/17 06:36: POC Glucose 171 I & O for Last 24 hours: Intake & Output 12/15/17 12/16/17 12/17/17 12/18/17 11:59 11:59 11:59 11:59 Intake Total 2572 / 2572 2459 / 2459 2333 / 2333 1690 / 1690 Output Total 3450 / 3450 3725 / 3725 3700 / 3700 3125 / 3125 Balance -878 / -878 -1266 / -1266 -1367 / -1367 -1435 / -1435 Weight 193 lb 4 oz 193 lb 4.01 oz Microbiology Reports for the Last 24 Hours: Microbiology 12/14/17 12:15 Blood Blood Culture - Preliminary NO GROWTH AFTER 72 HOURS 12/14/17 12:15 Blood Blood Culture - Preliminary NO GROWTH AFTER 72 HOURS Assessment and Plan (1) COPD with acute exacerbation Current visit: Yes Status: Acute Category: Medical Code(s): J44.1 - Chronic obstructive pulmonary disease with (acute) exacerbation (2) Peripheral edema Current visit: Yes Status: Acute Category: Medical Code(s): R60.9 - Edema , unspecified (3) History of irregular heartbeat Current visit: Yes Status: Acute Category: Medical Code(s): Z86.79 - Personal history of other diseases of the circulatory system (4) Obstructive sleep apnea Current visit: Yes Status: Acute Category: Medical Code(s): G47.33 - Obstructive sleep apnea (adult) (pediatric) (5) Hypertension, essential Current visit: Yes Status: Acute Category: Medical Code(s): I10 - Essential (primary) hypertension (6) Generalized anxiety disorder Current visit: Yes Status: Acute Category: Medical Code(s): F41.1 - Generalized anxiety disorder - Assessment and plan all Dx Assessment and Plan for all problems:: Sputum and blood culture negative to date. Continue IV antibiotics, steroids and duonebs. Consult Dr. Alvarado for further recommendations.
[2017-12-18 13:51] LABS: Adenovirus,PCR Not Detected (NotDetected); Bordetella Pertussis Not Detected (NotDetected); Chlamydophila Pneumoniae, PCR Not Detected (NotDetected); Coronavirus 229E Not Detected (NotDetected); Coronavirus NL63 Not Detected (NotDetected); Coronavirus OC43 Not Detected (NotDetected); Coronovirus HKU1,PCR Not Detected (NotDetected); Influenza A, PCR Not Detected (NotDetected); Influenza AH1, 2009 Not Detected (NotDetected); Influenza AH1, PCR Not Detected (NotDetected); Influenza AH3,PCR Not Detected (NotDetected); Influenza B, PCR Not Detected (NotDetected); Mycoplasma Pneumoniae, PCR Not Detected (NotDected); Parainfluenza 1, PCR Not Detected (NotDetected); Parainfluenza 2, PCR Not Detected (NotDetected); Parainfluenza 3, PCR Not Detected (NotDetected); Parainfluenza 4, PCR Not Detected (NotDetected); Respiratory Syncytial Virus Not Detected (NotDetected); Rhinovirus/Enterovirus Not Detected (NotDetected)
--- NOTE | 2017-12-18 14:26 | HMH.CONS ---
*Admission Date: 12/15/17 *Chief complaint: I got more and more short of breath. *History of present illness: Mr. Galindo is an 82-year-old man who has severe chronic obstructive pulmonary disease with an asthmatic component and who has been in some decline this past year after several exacerbations. I last saw him in November at which time he seems stable but was more breathless on exertion than he had been a year or 2 earlier. He had developed some leg edema and been prescribed Lasix for presumed congestive heart failure but was not taking this regularly. We recommended he go back to his last trimmer for further management a week or 2 ago, he developed a viral-like illness without fever and an increase in his chronic cough which was becoming productive of very dark, greenish sputum. He had no chest pain or hemoptysis but he was much more short of breath. I understand he was treated as an outpatient with corticosteroids and, perhaps, azithromycin but did not improve and was admitted here on the . Despite therapy with corticosteroids and antibiotics, he is only minimally better. However, he is expectorating more dark green sputum. It is very thick and is having some difficulty with this. He is still short of breath just moving around in bed or going to the bathroom. He has had no abdominal complaints.. [facility] History Medical History: Reports:: Hyperlipidemia, Hypertension Denies:: Cancer, Diabetes Mellitus Type 1, Diabetes Mellitus Type 2, MRSA Other Medical History: Reports: Arthritis Other Surgeries: Yes: Colonoscopy, EGD Amputation: No Fractures: No - *Social History Educational Level: Attended College Smoking Status: Former smoker Tobacco Type: cigarettes Alcohol Intake: never Occupational Status: retired Housing: house Household Members: spouse - Psychiatric History Expresses thoughts of harming self/others: None Suicide Plan Description: No Plan *Family Hx:: Asthma, Hyperlipidemia, Hypertension Review of Systems - Review of Systems Apart from his respiratory symptoms above, the rest of a 14 point review of systems is negative. - *Neurologic Denies abnormal walking, Denies abnormal hearing Meds Home Medications Medication Instructions Recorded Confirmed Type Albuterol Sulfate [Albuterol 2.5 mg IH BID PRN 12/14/17 12/14/17 History 0.083% 2.5mg/3mL neb] Aspirin [Aspirin 81mg chewable 81 mg PO DAILY 12/14/17 12/14/17 History tab] Azelastine HCl [Azelastine Nasal 0.1 % NS BID 12/14/17 12/14/17 History Sleepy Eye 30mL Bottle] Bisoprolol Fumarate [Zebeta 5mg 2.5 mg PO DAILY 12/14/17 12/14/17 History tablet] Furosemide [Furosemide 40MG tAB] 40 mg PO DAILY PRN 12/14/17 12/14/17 History Lisinopril [Lisinopril 20mg Tab] 20 mg PO DAILY 12/14/17 12/14/17 History Multivitamin [One Daily] 1 each PO DAILY 12/14/17 12/14/17 History Naproxen Sodium 220 mg PO DAILY PRN 12/14/17 12/14/17 History Pantoprazole Sodium [Protonix 40mg 40 mg PO DAILY 12/14/17 12/14/17 History tablet] Potassium Chloride [Klor-con 20 20 meq PO DAILY 12/14/17 12/14/17 History mEq tablet] Rosuvastatin Calcium 20 mg PO DAILY 12/14/17 12/14/17 History diazePAM [diazePAM 5mg Tablet] 5 mg PO BID PRN 12/14/17 12/14/17 History predniSONE [Deltasone 10mg 10 mg PO DAILY 12/14/17 12/14/17 History tablet] Fluticasone/Vilanterol [Breo 1 dose IH BID 12/15/17 12/15/17 History Ellipta 200-25 Mcg INH] Montelukast Sodium [Montelukast 10 mg PO HS 12/15/17 12/15/17 History 10mg Tab] Tiotropium Vilas [Spiriva 1 dose IH DAILY 12/15/17 12/15/17 History Respimat] Allergies Allergy/AdvReac Type Severity Reaction Status Date / Time DUST Allergy Unknown Uncoded 09/18/17 14:51 HAY Allergy Unknown Uncoded 09/18/17 14:51 Exam Vital signs and Labs for Last 24 Hours: Temp Pulse Resp BP Pulse Ox 98.2 F 71 20 137/73 94 L 12/18/17 07:43 12/18/17 11:00 12/18/17 07:43 12/18/17 07:43 12/18/17 07:
--- NOTE | 2017-12-18 14:29 | P.CONS_ITS ---
*Admission Date: 12/15/17 *Chief complaint: I got more and more short of breath. *History of present illness: Mr. Galindo is an 82-year-old man who has severe chronic obstructive pulmonary disease with an asthmatic component and who has been in some decline this past year after several exacerbations. I last saw him in November at which time he seems stable but was more breathless on exertion than he had been a year or 2 earlier. He had developed some leg edema and been prescribed Lasix for presumed congestive heart failure but was not taking this regularly. We recommended he go back to his agency legal counsel for further management a week or 2 ago, he developed a viral-like illness without fever and an increase in his chronic cough which was becoming productive of very dark, greenish sputum. He had no chest pain or hemoptysis but he was much more short of breath. I understand he was treated as an outpatient with corticosteroids and, perhaps, azithromycin but did not improve and was admitted here on the . Despite therapy with corticosteroids and antibiotics, he is only minimally better. However, he is expectorating more dark green sputum. It is very thick and is having some difficulty with this. He is still short of breath just moving around in bed or going to the bathroom. He has had no abdominal complaints.. [facility] History Medical History: Reports:: Hyperlipidemia, Hypertension Denies:: Cancer, Diabetes Mellitus Type 1, Diabetes Mellitus Type 2, MRSA Other Medical History: Reports: Arthritis Other Surgeries: Yes: Colonoscopy, EGD Amputation: No Fractures: No - *Social History Educational Level: Attended College Smoking Status: Former smoker Tobacco Type: cigarettes Alcohol Intake: never Occupational Status: retired Housing: house Household Members: spouse - Psychiatric History Expresses thoughts of harming self/others: None Suicide Plan Description: No Plan *Family Hx:: Asthma, Hyperlipidemia, Hypertension Review of Systems - Review of Systems Apart from his respiratory symptoms above, the rest of a 14 point review of systems is negative. - *Neurologic Denies abnormal walking, Denies abnormal hearing Meds Home Medications Medication Instructions Recorded Confirmed Type Albuterol Sulfate [Albuterol 2.5 mg IH BID PRN 12/14/17 12/14/17 History 0.083% 2.5mg/3mL neb] Aspirin [Aspirin 81mg chewable 81 mg PO DAILY 12/14/17 12/14/17 History tab] Azelastine HCl [Azelastine Nasal 0.1 % NS BID 12/14/17 12/14/17 History [place] 30mL Bottle] Bisoprolol Fumarate [Zebeta 5mg 2.5 mg PO DAILY 12/14/17 12/14/17 History tablet] Furosemide [Furosemide 40MG tAB] 40 mg PO DAILY PRN 12/14/17 12/14/17 History Lisinopril [Lisinopril 20mg Tab] 20 mg PO DAILY 12/14/17 12/14/17 History Multivitamin [One Daily] 1 each PO DAILY 12/14/17 12/14/17 History Naproxen Sodium 220 mg PO DAILY PRN 12/14/17 12/14/17 History Pantoprazole Sodium [Protonix 40mg 40 mg PO DAILY 12/14/17 12/14/17 History tablet] Potassium Chloride [Klor-con 20 20 meq PO DAILY 12/14/17 12/14/17 History mEq tablet] Rosuvastatin Calcium 20 mg PO DAILY 12/14/17 12/14/17 History diazePAM [diazePAM 5mg Tablet] 5 mg PO BID PRN 12/14/17 12/14/17 History predniSONE [Deltasone 10mg 10 mg PO DAILY 12/14/17 12/14/17 History tablet] Fluticasone/Vilanterol [Breo 1 dose IH BID 12/15/17 12/15/17 History Ellipta 200-25 Mcg INH] Montelukast Sodium [Montelukast 10 mg PO HS 12/15/17 12/15/17
[2017-12-18 17:13] LABS: POC Glucose,Bedside 147 mg/dL (70-110)
[2017-12-18 17:13] LABS: POC Glucose,Bedside 131 mg/dL (70-110)
[2017-12-18 20:42] LABS: Human Metapneumovirus Detected (NotDetected)
[2017-12-19] VITALS (9 sets, daily range): BP systolic 101–145; BP diastolic 68–81; PULSE 64–88; RESP 18–24; TEMP 36.7–37.7; O2SAT 90–97
[2017-12-19 03:14] LABS: POC Glucose,Bedside 158 mg/dL (70-110)
--- NOTE | 2017-12-19 03:32 | PC.NURSE ---
REQUESTED PRN VALIUM PRIOR TO BED PT STATED IT HELPS ME REST FOR BEDTIME ON REASSESSMENT PT STATED IT HAS HELPED. PROVIDED WITH PRN COUGH MEDICATION PER REQUEST, ADMINISTERED PER NOV. LUNG SOUNDS NOTED RHONCHI T/O AND SCATTERED WHEEZING PER AUSCULTATION. 2LNC TOLERATED WELL. WILL ATTEMPT TO WEAN O2 TO 1LNC FOR 0400 VS ROUND. PRODUCTIVE COUGH NOTED WITH GREEN/BROWN, THICK SPUTUM. VSS. WILL CONTINUE TO MONITOR.
--- NOTE | 2017-12-19 05:13 | PC.NURSE ---
PLACED IN CONTACT PRECAUTIONS R/T DETECTED HUMAN METAPNEUMOVIR PER PCR. EDUCATION PROVIDED REGARDING URI AND ISOLATION.
[2017-12-19 06:28] LABS: POC Glucose,Bedside 132 mg/dL (70-110)
--- NOTE | 2017-12-19 08:20 | SW/DCPLANNER ---
WENT IN THIS MORNING TO GIVE PATIENT A COPY OF HIS MEDICARE LETTER WITH A POSSIBILITY OF HIM DISCHARGING TODAY...PATIENT WAS UPSET STATING SOMEONE HAD BEEN IN AND HAD HIM TO SIGN A FORM THAT HE WOULD BE RESPONSIBLE FOR HIS BILL IF MEDICARE DOESN'T PAY FOR IT... HE IS A [employer] PATIENT AND ELECTED TO STAY HERE VERSUS GOING TO [facility]... I EXPLAINED TO HIM THAT WAS THE PROCESS... DR CHAVEZ HAS NOT BEEN IN TO SEE PATIENT YET, PATIENT STATED HIS DOESN'T DRIVE AND HE THINKS THE ROADS ARE TOO BAD FOR HER TO COME AND GET HIM... WILL WAIT AND SEE IF DR CHAVEZ THINKS HE IS READY FOR A DISPOSITION, WILL ASSIST INDICATED.
--- NOTE | 2017-12-19 08:40 | P.PN_ITS ---
Internal Medicine - PN: Subj *Date: 12/19/17 *Time: 08:38 Interval history: Pulmonary consultation note reviewed and appreciated. Patient feels a little better but continues to feel like he is not getting up an appropriate amount of sputum. Exam Vital signs and Labs for Last 24 Hours: Temp Pulse Resp BP Pulse Ox 98.9 F 83 24 145/81 95 12/19/17 07:33 12/19/17 07:33 12/19/17 07:33 12/19/17 07:33 12/19/17 07:33 Laboratory Results - last 24 hr 12/18/17 11:17: POC Glucose 131 12/18/17 13:47: Chlamy pneumoniae PCR Not detected, Adenovirus (PCR) Not detected, B.parapertussis DNA PCR Not detected, Coronavirus OC43 (PCR) Not detected, Coronavirus HKU1 (PCR) Not detected, Coronavirus 229E (PCR) Not detected, Coronavirus NL63 (PCR) Not detected, Human Metapneumovir PCR Detected A, Influenza A (H1) PCR Not detected, Influ A (H1N1/09) PCR Not detected, Influenza A (H3) PCR Not detected, Influenza Type A (PCR) Not detected, Influenza Type B (PCR) Not detected, M. pneumoniae (PCR) Not detected, Parainfluenza 1 (PCR) Not detected, Parainfluenza 2 (PCR) Not detected, Parainfluenza 3 (PCR) Not detected, Parainfluenza 4 (PCR) Not detected, RSV (PCR ) Not detected, Entero/Rhino (PCR) Not detected 12/18/17 16:29: POC Glucose 147 12/18/17 20:33: POC Glucose 158 12/19/17 05:54: POC Glucose 132 I & O for Last 24 hours: Intake & Output 12/16/17 12/17/17 12/18/17 12/19/17 11:59 11:59 11:59 11:59 Intake Total 2459 / 2459 2333 / 2333 1690 / 1690 1260 / 1260 Output Total 3725 / 3725 3700 / 3700 4425 / 4425 3625 / 3625 Balance -1266 / -1266 -1367 / -1367 -2735 / -2735 -2365 / -2365 Weight 193 lb 4 oz 193 lb 4.01 oz Microbiology Reports for the Last 24 Hours: Microbiology 12/14/17 12:15 Blood Blood Culture - Preliminary NO GROWTH AFTER 4 DAYS 12/14/17 12:15 Blood Blood Culture - Preliminary NO GROWTH AFTER 4 DAYS Narrative: Overall patient is more alert. Lungs have tight rhonchi with some thick mucus, no wheezing bilaterally. Good air movement. Heart rate regular without murmur. No edema noted. Pulses good in his wrist. Assessment and Plan (1) COPD with acute exacerbation Current visit: Yes Status: Acute Category: Medical Code(s): J44.1 - Chronic obstructive pulmonary disease with (acute) exacerbation (2) Peripheral edema Current visit: Yes Status: Acute Category: Medical Code(s): R60.9 - Edema , unspecified (3) History of irregular heartbeat Current visit: Yes Status: Acute Category: Medical Code(s): Z86.79 - Personal history of other diseases of the circulatory system (4) Obstructive sleep apnea Current visit: Yes Status: Acute Category: Medical Code(s): G47.33 - Obstructive sleep apnea (adult) (pediatric) (5) Hypertension, essential Current visit: Yes Status: Acute Category: Medical Code(s): I10 - Essential (primary) hypertension (6) Generalized anxiety disorder Current visit: Yes Status: Acute Category: Medical Code(s): F41.1 - Generalized anxiety disorder - Assessment and plan all Dx Assessment and Plan for all problems:: Change antibiotics. Add Mucomyst, continue other Rx. PT evaluation because of his weakness.
--- NOTE | 2017-12-19 10:29 | HMH.PTEV ---
Physical Therapy Evaluation Rehab PT IP Evaluation Start: 12/19/17 08:36 Freq: ONCE Status: Active Protocol: Document 12/19/17 10:24 FALLON (Rec: 12/19/17 10:29 FALLON [id number]) Subjective/History History History This is the initial Physical Therapy evaluation for Edenilson Galindo. Pt is an 82 y/o male admitted to [facility] for exacerbation of COPD. Subjective Subjective Pt reports no complaints other than SOA Rehab PT IP Eval Objective Appearance Patient Behavior Appropriate Patient Orientation Person Place Time Name Patient Baseline Difficulty following instructions none Speech Pattern Clear Ambulation Patient Able to Ambulate Yes Ambulation Observation IP General Gait Pattern Observation Narrow Based Gait Ambulation Distance (feet) 50 Ambulation Assistive Device None Balance Ability to Arise Able, uses arms to help Sitting Balance Steady, safe Standing Balance Narrow stance w/o support Dynamic Sitting Balance Ability Normal Dynamic Standing Balance Ability Good Transfers Bed Transfer Ability Independent Chair Transfer Ability Independent Sit to Stand Bed Transfer Ability Independent Sit to Stand Chair Transfer Ability Independent ROM LLE PT ROM Status WFL MMT All Extremities PT MMT WFL Rehab PT IP prob,goals,plan Problems Date of Evaluation: 12/19/17 Rehab Potential Rehab Potential Innapropriate for Skilled Therapy Equipment Needs Assistive Devices None / NA Discharge Plan PT Discharge Plan Dc pt to home G -code Required Yes Eval Complexity Eval Charge Codes 13610 - Low Complexity G Codes PT Current Status Mobility PT Current Status Modifier CI-At least 1% but less than 20% impaired, limited or restricted PT Goal Status Mobility PT Goal Status Modifer CI-At least 1% but less than 20% impaired, limited or restricted PHYSICIAN CERTIFICATION: I certify the specified therapy services for Edenilson Galindo JR are required, authorized, and reviewed every 30 days.
--- NOTE | 2017-12-19 10:34 | PC.NURSE ---
I reasked patient about riya biaconstantine @ [phone] and he stated he didn't care about the blood clots he wasn't wearing them.
--- NOTE | 2017-12-19 10:52 | PC.NURSE ---
SPUTUM SPECIMEN ORDER RECEIVED, PATIENT UNABLE TO COUGH ANYTHING UP, RT NOTIFIED TO SUCTION PATIENT FOR SAMPLE. RT IN ROOM WITH PT. AT THIS TIME.
[2017-12-19 11:59] LABS: POC Glucose,Bedside 136 mg/dL (70-110)
--- NOTE | 2017-12-19 14:38 | P.PN_ITS ---
Internal Medicine - PN: Subj *Date: 12/19/17 *Time: 14:37 Exam Vital signs and Labs for Last 24 Hours: Temp Pulse Resp BP Pulse Ox 98.9 F 68 24 145/81 92 L 12/19/17 07:33 12/19/17 10:58 12/19/17 07:33 12/19/17 07:33 12/19/17 10:58 Laboratory Results - last 24 hr 12/18/17 11:17: POC Glucose 131 12/18/17 13:47: Chlamy pneumoniae PCR Not detected, Adenovirus (PCR) Not detected, B.parapertussis DNA PCR Not detected, Coronavirus OC43 (PCR) Not detected, Coronavirus HKU1 (PCR) Not detected, Coronavirus 229E (PCR) Not detected, Coronavirus NL63 (PCR) Not detected, Human Metapneumovir PCR Detected A, Influenza A (H1) PCR Not detected, Influ A (H1N1/09) PCR Not detected, Influenza A (H3) PCR Not detected, Influenza Type A (PCR) Not detected, Influenza Type B (PCR) Not detected, M. pneumoniae (PCR) Not detected, Parainfluenza 1 (PCR) Not detected, Parainfluenza 2 (PCR) Not detected, Parainfluenza 3 (PCR) Not detected, Parainfluenza 4 (PCR) Not detected, RSV (PCR ) Not detected, Entero/Rhino (PCR) Not detected 12/18/17 16:29: POC Glucose 147 12/18/17 20:33: POC Glucose 158 12/19/17 05:54: POC Glucose 132 12/19/17 11:25: POC Glucose 136 I & O for Last 24 hours: Intake & Output 12/16/17 12/17/17 12/18/17 12/19/17 23:59 23:59 23:59 23:59 Intake Total 2519 / 2519 2333 / 2333 1210 / 1210 1260 / 1260 Output Total 3375 / 3375 4250 / 4250 3200 / 3200 2850 / 2850 Balance -856 / -856 -1917 / -1917 -1989 / -1989 -1590 / -1590 Weight 87.657 kg Microbiology Reports for the Last 24 Hours: Microbiology 12/14/17 12:15 Blood Blood Culture - Final NO GROWTH AFTER 5 DAYS 12/14/17 12:15 Blood Blood Culture - Final NO GROWTH AFTER 5 DAYS Assessment and Plan (1) COPD with acute exacerbation Current visit: Yes Status: Acute Category: Medical Code(s): J44.1 - Chronic obstructive pulmonary disease with (acute) exacerbation (2) Peripheral edema Current visit: Yes Status: Acute Category: Medical Code(s): R60.9 - Edema , unspecified (3) History of irregular heartbeat Current visit: Yes Status: Acute Category: Medical Code(s): Z86.79 - Personal history of other diseases of the circulatory system (4) Obstructive sleep apnea Current visit: Yes Status: Acute Category: Medical Code(s): G47.33 - Obstructive sleep apnea (adult) (pediatric) (5) Hypertension, essential Current visit: Yes Status: Acute Category: Medical Code(s): I10 - Essential (primary) hypertension (6) Generalized anxiety disorder Current visit: Yes Status: Acute Category: Medical Code(s): F41.1 - Generalized anxiety disorder The patient's infection will respond to the chosen ABx?: Yes Is the patient receiving the right drug, dose, and route?: Yes Could a more targeted ABx be ordered?: No (DE-ESCALATED TO [place] TODAY) 0 (UNKNOWN)
[2017-12-19 16:33] LABS: POC Glucose,Bedside 142 mg/dL (70-110)
--- NOTE | 2017-12-19 17:39 | DIET.NUTRFU ---
PO intakes 100% all meals on a cardiac diet. Pt observed eating lunch today and making healthy choices, a salad, soup and sandwich. His blood sugars are also improving POC glucose 132,158,147,136. Edema in lower extremity down from 2+ to 1+. Pt voices no complaints with food. Will continue to monitor.
--- NOTE | 2017-12-19 17:52 | PC.NURSE ---
PATIENT SITTING AT BEDSIDE AT THIS TIME, FAMILY AT BEDSIDE. PT. VERY HARD OF HEARING. PATIENT EDUCATED TODAY ON THE IMPORTANCE OF JULIENNE HOSE, CONTINUES TO REFUSE. PATIENT IN ISOLATION FOR HUMAN METAPNEUMOVIR PER PCR. PATIENT WAS UPSET THIS AM, STATES SOMEONE CAME IN HIS ROOM WITH A PAPER FOR HIM TO SIGN ABOUT HIS INSURANCE AND DIDN'T EXPLAIN WHAT OR WHY THEY WANTED HIM TO SIGN. LUNG SOUNDS CONTINUE TO BE WHEEZES AND CRACKLES, VITAL SIGNS STABLE, CALL [place] IN REACH, NO DISTRESS NOTED, WILL CONTINUE TO MONITOR.
--- NOTE | 2017-12-19 18:59 | PC.NURSE ---
REPORT GIVEN TO ADRIEL VELEZ
--- NOTE | 2017-12-19 19:19 | PC.NURSE ---
report given to chapito
[2017-12-19 20:50] LABS: POC Glucose,Bedside 180 mg/dL (70-110)
[2017-12-20] VITALS (7 sets, daily range): BP systolic 141–156; BP diastolic 79–93; PULSE 71–91; RESP 20–22; TEMP 36.4–36.7; O2SAT 94–97
--- NOTE | 2017-12-20 03:38 | PC.NURSE ---
He is A&Ox3. He reports that he wears O2@ @ HS. SOA with exertion. Lung sounds with wheezes ad rhonchi. Voiding per urinal. Urine is yellow, clear. Trace edema BUE. Abdominal distention.
[2017-12-20 05:59] LABS: POC Glucose,Bedside 153 mg/dL (70-110)
[2017-12-20 07:07] LABS: Basophils % 0.1 % (0.1-2.0); Eosinophils % 0.1 % (0.1-12.0); Hematocrit 48.7 % (42.0-52.0); Hemoglobin 15.3 g/dL (14.1-18.0); Lymphocytes # 0.3 K/mm3 (0.7-4.5); Lymphocytes % 2.3 K/mm3 (10-50); Mean Corpuscular HGB Conc 31.4 g/dL (31.8-35.4); Mean Corpuscular Hemoglobin 28.9 pg (27.0-31.2); Mean Corpuscular Volume 92.1 fl (80-94); Mean Platelet Volume 8.2 fl (7.4-10.4); Monocytes # 0.7 K/mm3 (0.1-1.0); Monocytes % 4.9 % (1.7-9.3); Neutrophils # 13.6 K/mm3 (1.8-7.8); Neutrophils % 92.6 % (37.0-80.0); Platelet Count 181 K/mm3 (142-424); Red Blood Count 5.28 M/mm3 (4.60-6.20); Red Cell Distribution Width 12.8 % (11.5-17.5); White Blood Count 14.7 K/mm3 (4.8-10.8)
[2017-12-20 07:09] LABS: MANUAL DIFFERENTIAL MANUAL DIFFERENTIAL (MANUAL DIFF)
[2017-12-20 07:11] LABS: Anion Gap 6.8 mEq/L (5-15); Blood Urea Nitrogen 33 mg/dL (7-18); Carbon Dioxide 39 mmol/L (21.0-32.0); Chloride 99 mmol/L (98-107); Creatinine Clearance Estimated 73 mL/min (0-300); Creatinine,Serum 0.68 mg/dL (0.70-1.30); Estimated Glomerular Filt Rate 112 ml/min (>60); GFR (African American) 136 ML/MIN (>60); Glucose 157 mg/dL (74-106); Potassium 4.8 mmoL/L (3.5-5.1); Sodium 140 mmol/L (136-145)
--- NOTE | 2017-12-20 07:31 | PC.NURSE ---
REPORT GIVEN TO Ezequiel AGUILAR W/C
[2017-12-20 08:47] LABS: Lymphocytes % 4 % (10-50); Monocytes % 5 % (2-9); Neutrophils % 87 % (42-76); Total Cells Counted 100
[2017-12-20 08:48] LABS: Platelet Estimate Normal
--- NOTE | 2017-12-20 08:48 | XR_ITS ---
XR chest 2V HISTORY: ITS.REASON: shortness of breath ORDERING PHYSICIAN: Red Clifford MD PATIENT AGE: 82 years COMPARISON: 12/17/2017 FINDINGS: The cardiomediastinal silhouette and pulmonary vascularity are within normal limits. Left pericardial scarring once again noted along with persistent mild thickening of the major fissure. No lobar consolidation or collapse. 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 IMPRESSION: Chronic changes, no change with no acute finding.
--- NOTE | 2017-12-20 09:10 | HMH.ACPN2 ---
Internal Medicine - PN: Subj *Date: 12/20/17 *Time: 08:00 Interval history: Patient continues to be dyspneic at rest. Conversational dyspnea at 4-5 words. He continues to have moderate amount of cohen sputum. Alert and oriented x3. Rate and rhythm regular. 2+ BLE edema. Lung sounds with rhonchi and wheezes throughout. Exam Vital signs and Labs for Last 24 Hours: Temp Pulse Resp BP Pulse Ox 97.6 F 80 22 142/79 96 12/20/17 08:00 12/20/17 08:00 12/20/17 08:00 12/20/17 08:00 12/20/17 08:00 Laboratory Results - last 24 hr 12/19/17 11:25: POC Glucose 136 12/19/17 16:24: POC Glucose 142 12/19/17 20:17: POC Glucose 180 12/20/17 05:47: POC Glucose 153 12/20/17 06:15: WBC 14.7 H, RBC 5.28, Hgb 15.3, Hct 48.7, MCV 92.1, MCH 28.9, MCHC 31.4 L, RDW 12.8, Plt Count 181, MPV 8.2, Neut % (Auto) 92.6 H, Lymph % (Auto) 2.3 L, [place] % (Auto) 4.9, Eos % (Auto) 0.1, Baso % (Auto) 0.1, Neut # (Auto) 13.6 H, Lymph # (Auto) 0.3 L, [place] # (Auto) 0.7, Eos # (Auto) 0.0, Baso # (Auto) 0.0, Total Counted 100, Neutrophils % (Manual) 87 H, Band Neutrophils % 3.0, Lymphocytes % (Manual) 4 L, Atypical Lymphs % 1.0, Monocytes % (Manual) 5, Platelet Estimate Normal 12/20/17 06:15: Sodium 140, Potassium 4.8, Chloride 99, Carbon Dioxide 39 H D, Anion Gap 6.8, BUN 33 H, Creatinine 0.68 L D, Estimated Creat Clear 73, Estimated GFR 112, Est GFR ( Amer) 136 D, Glucose 157 H I & O for Last 24 hours: Intake & Output 12/17/17 12/18/17 12/19/17 12/20/17 11:59 11:59 11:59 11:59 Intake Total 2333 / 2333 1690 / 1690 1260 / 1260 2029 / 2029 Output Total 3700 / 3700 4425 / 4425 3625 / 3625 2620 / 2620 Balance -1367 / -1367 -2735 / -2735 -2365 / -2365 -590 / -590 Weight 193 lb 4.01 oz Microbiology Reports for the Last 24 Hours: Microbiology 12/19/17 11:00 Sputum - Expectorated Sputum Gram Stain - Final 12/19/17 11:00 Sputum - Expectorated Sputum Sputum Culture - Preliminary Yeast 12/14/17 12:15 Blood Blood Culture - Final NO GROWTH AFTER 5 DAYS 12/14/17 12:15 Blood Blood Culture - Final NO GROWTH AFTER 5 DAYS Assessment and Plan (1) COPD with acute exacerbation Current visit: Yes Status: Acute Category: Medical Code(s): J44.1 - Chronic obstructive pulmonary disease with (acute) exacerbation (2) Peripheral edema Current visit: Yes Status: Acute Category: Medical Code(s): R60.9 - Edema, unspecified (3) History of irregular heartbeat Current visit: Yes Status: Acute Category: Medical Code(s): Z86.79 - Personal history of other diseases of the circulatory system (4) Obstructive sleep apnea Current visit: Yes Status: Acute Category: Medical Code(s): G47.33 - Obstructive sleep apnea (adult) (pediatric) (5) Hypertension, essential Current visit: Yes Status: Acute Category: Medical Code(s): I10 - Essential (primary) hypertension (6) Generalized anxiety disorder Current visit: Yes Status: Acute Category: Medical Code(s): F41.1 - Generalized anxiety disorder - Assessment and plan all Dx Assessment and Plan for all problems:: No improvement in respiratory status. Second sputum culture revealed some yeast. Diflucan added. Will repeat CXR. Discussed possibility of ECF for short term rehab. 0 (UNKNOWN)
--- NOTE | 2017-12-20 09:16 | P.PN_ITS ---
Internal Medicine - PN: Subj *Date: 12/20/17 *Time: 08:00 Interval history: Patient continues to be dyspneic at rest. Conversational dyspnea at 4-5 words. He continues to have moderate amount of cohen sputum. Alert and oriented x3. Rate and rhythm regular. 2+ BLE edema. Lung sounds with rhonchi and wheezes throughout. Exam Vital signs and Labs for Last 24 Hours: Temp Pulse Resp BP Pulse Ox 97.6 F 80 22 142/79 96 12/20/17 08:00 12/20/17 08:00 12/20/17 08:00 12/20/17 08:00 12/20/17 08:00 Laboratory Results - last 24 hr 12/19/17 11:25: POC Glucose 136 12/19/17 16:24: POC Glucose 142 12/19/17 20:17: POC Glucose 180 12/20/17 05:47: POC Glucose 153 12/20/17 06:15: WBC 14.7 H, RBC 5.28, Hgb 15.3, Hct 48.7, MCV 92.1, MCH 28.9, MCHC 31.4 L, RDW 12.8, Plt Count 181, MPV 8.2, Neut % (Auto) 92.6 H, Lymph % ( Auto) 2.3 L, [place] % (Auto) 4.9, Eos % (Auto) 0.1, Baso % (Auto) 0.1, Neut # ( Auto) 13.6 H, Lymph # (Auto) 0.3 L, [place] # (Auto) 0.7, Eos # (Auto) 0.0, Baso # (Auto) 0.0, Total Counted 100, Neutrophils % (Manual) 87 H, Band Neutrophils % 3.0, Lymphocytes % (Manual) 4 L, Atypical Lymphs % 1.0, Monocytes % (Manual) 5, Platelet Estimate Normal 12/20/17 06:15: Sodium 140, Potassium 4.8, Chloride 99, Carbon Dioxide 39 H D, Anion Gap 6.8, BUN 33 H, Creatinine 0.68 L D, Estimated Creat Clear 73, Estimated GFR 112, Est GFR ( Amer) 136 D, Glucose 157 H I & O for Last 24 hours: Intake & Output 12/17/17 12/18/17 12/19/17 12/20/17 11:59 11:59 11:59 11:59 Intake Total 2333 / 2333 1690 / 1690 1260 / 1260 2029 / 2029 Output Total 3700 / 3700 4425 / 4425 3625 / 3625 2620 / 2620 Balance -1367 / -1367 -2735 / -2735 -2365 / -2365 -590 / -590 Weight 193 lb 4.01 oz Microbiology Reports for the Last 24 Hours: Microbiology 12/19/17 11:00 Sputum - Expectorated Sputum Gram Stain - Final 12/19/17 11:00 Sputum - Expectorated Sputum Sputum Culture - Preliminary Yeast 12/14/17 12:15 Blood Blood Culture - Final NO GROWTH AFTER 5 DAYS 12/14/17 12:15 Blood Blood Culture - Final NO GROWTH AFTER 5 DAYS Assessment and Plan (1) COPD with acute exacerbation Current visit: Yes Status: Acute Category: Medical Code(s): J44.1 - Chronic obstructive pulmonary disease with (acute) exacerbation (2) Peripheral edema Current visit: Yes Status: Acute Category: Medical Code(s): R60.9 - Edema , unspecified (3) History of irregular heartbeat Current visit: Yes Status: Acute Category: Medical Code(s): Z86.79 - Personal history of other diseases of the circulatory system (4) Obstructive sleep apnea Current visit: Yes Status: Acute Category: Medical Code(s): G47.33 - Obstructive sleep apnea (adult) (pediatric) (5) Hypertension, essential Current visit: Yes Status: Acute Category: Medical Code(s): I10 - Essential (primary) hypertension (6) Generalized anxiety disorder Current visit: Yes Status: Acute Category: Medical Code(s): F41.1 - Generalized anxiety disorder - Assessment and plan all Dx Assessment and Plan for all problems:: No improvement in respiratory status. Second sputum culture revealed some yeast. Diflucan added. Will repeat CXR. Discussed possibility of ECF for short term rehab. 0 (UNKNOWN)
--- NOTE | 2017-12-20 09:37 | INFXCTL.NOTE ---
Patient is positive for Human Metapneumovirus. Per CDC, as this virus is closely related to RSV, Contact Isolation is required.
--- NOTE | 2017-12-20 13:55 | SW/DCPLANNER ---
WENT IN TO SPEAK WITH PATIENT TODAY TO ATTEMPT TO GET HIM READY FOR A DISPOSITION WITH A POSSIBLE DISCHARGE IN THE AM... MR PATEL HAS BEEN RESISTANT TO TALK ABOUT GOING HOME STATING HE DOESN'T THINK HE IS WELL ENOUGH...I ASKED HIM IF HE THOUGHT HE NEEDED SOME SKILLED REHAB AND HE WANTS ME TO SPEAK WITH HIS ...SHE IS ON HER WAY AND I WILL TALK WITH HER ABOUT WHAT SHE WANTS TO WHETHER SHE WANTS HIM TO GO HOME OR PLACE HIM FOR SOME SKILLED SERVICES...
--- NOTE | 2017-12-20 16:17 | CT_ITS ---
CT abdomen pelvis wo con CLINICAL INDICATION: Rectal bleeding ITS.REASON: blood in stool ORDERING PHYSICIAN: Red Clifford MD PATIENT AGE: 82 years COMPARISON: 08/15/2016 TECHNIQUE: Axial images obtained with sagittal and coronal reformats. All CT scans at the facility use one or more dose reduction, viz: automated exposure control; ma/kV adjustment per patient size (including targeted exams where dose is matched to indication; i.e. head); or iterative reconstruction technique. PROCEDURE: Oral Contrast: Gastroview IV Contrast: None. FINDINGS: There are mild micronodular densities in the lung bases posteriorly consistent with tree-in-bud pattern. There are coronary artery calcifications. The liver, gallbladder, spleen, and adrenal glands have an unremarkable appearance. There is thickening of the transverse portion of the duodenum anteriorly with some minimal stranding of the peripancreatic fat at this area. This could be related to mild pancreatitis with local inflammation or duodenitis. There is extensive bhagat diverticulosis. The superior aspect of the sigmoid colon lies just beneath the transverse portion of duodenum. It is possible that the inflammatory changes seen along the transverse portion of the duodenum could be related to mild diverticulitis as well. No evidence of appendicitis. There is some stranding of the fat however in the right lower quadrant. Could be extension from the inflammatory process in the duodenal area. No acute bony anomalies. IMPRESSION: 1. Thickening of the transverse portion of the duodenum with minimal stranding of the fat. There is subadjacent diverticulosis in a high riding sigmoid colon. This inflammatory change could be related to either duodenitis with associated inflammation or even diverticulitis. Pancreatitis is felt to be less likely but not entirely excluded. 2. Nodular opacities in the posterior lower lobes with mild bronchial thickening compatible with bronchopneumonia
[2017-12-20 16:30] LABS: Basophils % 0.1 % (0.1-2.0); Eosinophils # 0.1 K/mm3 (0.0-0.4); Eosinophils % 0.3 % (0.1-12.0); Hematocrit 49.1 % (42.0-52.0); Hemoglobin 15.5 g/dL (14.1-18.0); Lymphocytes # 0.3 K/mm3 (0.7-4.5); Lymphocytes % 1.9 K/mm3 (10-50); Mean Corpuscular HGB Conc 31.6 g/dL (31.8-35.4); Mean Corpuscular Hemoglobin 28.4 pg (27.0-31.2); Mean Platelet Volume 7.7 fl (7.4-10.4); Monocytes # 0.9 K/mm3 (0.1-1.0); Monocytes % 5.9 % (1.7-9.3); Neutrophils # 13.7 K/mm3 (1.8-7.8); Neutrophils % 91.7 % (37.0-80.0); Platelet Count 179 K/mm3 (142-424); Red Blood Count 5.46 M/mm3 (4.60-6.20); Red Cell Distribution Width 12.8 % (11.5-17.5); White Blood Count 14.9 K/mm3 (4.8-10.8)
[2017-12-20 16:48] LABS: Lactic Acid 1.3 mmol/L (0.4-2.0)
[2017-12-20 17:09] LABS: MANUAL DIFFERENTIAL MANUAL DIFFERENTIAL (MANUAL DIFF)
[2017-12-20 17:21] LABS: POC Glucose,Bedside 116 mg/dL (70-110)
[2017-12-20 17:49] LABS: Lymphocytes % 8 % (10-50); Monocytes % 3 % (2-9); Neutrophils % 89 % (42-76); RBC Morphology Normal; Total Cells Counted 100
[2017-12-20 17:50] LABS: Platelet Estimate Normal
--- NOTE | 2017-12-20 18:03 | PC.NURSE ---
82 YEAR OLD WHITE MALE PRESENTS TO THE HOSPITAL ON 12/14/17 WITH A DIAGNOSIS OF COPD FAILED OUTPATIENT TREATMENT. HE CONTINUES TO BE VERY SHORT OF BREATH, THIS AFTERNOON HIS CAME AND STATED HE WAS BLEEDING IT WAS NOTED THAT HE HAD A NORMAL SOFT BOWEL MOVEMENT BUT THERE WAS BRIGHT RED BLOOD IN THE TOILET. I NOTIFIED DR. CHAVEZ'S OFFICE AND TALKED WITH MICHAEL AND SHE ORDERED A CBC, AFTER TALKING WITH DR. CHAVEZ SHE CALLED BACK AND ORDERED A LACTIC ACIDE, CT OF THE ABDOMEN AND PELVIS WITH ORAL CONTRAST. HGB AND HCT 10.2/33.2 RESPECTIVELY, LACTIC ACID WAS 1.3. WE ARE AWAITING THE CT OF THE ABDOMEN AND PELVIS AND SHOULD BE INITIATED AROUND 1840PM. HE DENIES EVER HAVING HEMORRHOIDS. HE IS RESTING QUIETLY AT THIS TIME WITH NO COMPLAINTS OF PAIN OR DISCOMFORT. WILL CONTINUE TO MONITOR, MALACHI CAMILO, MSN, RN
--- NOTE | 2017-12-20 19:01 | PC.NURSE ---
PATIENT IS NOW OFF THE FLOOR FOR A CT OF THE ABDOMEN AND PELVIS MALACHI CAMILO, MSN, RN
[2017-12-20 21:19] LABS: POC Glucose,Bedside 132 mg/dL (70-110)
[2017-12-20 21:19] LABS: POC Glucose,Bedside 262 mg/dL (70-110)
[2017-12-21] VITALS (7 sets, daily range): BP systolic 141–167; BP diastolic 67–85; PULSE 66–107; RESP 18–21; TEMP 36.4–36.7; O2SAT 92–97
--- NOTE | 2017-12-21 04:31 | PC.NURSE ---
Addendum entered by Sabrina Scanlon RN 12/21/17 04:37: Tolerating 2L NC well Original Note: Pt has rested well tonight with no complaints of pain. Pt continues to have bright red stool and abdomen is very distended and firm with pain to RLQ and bruising noted to MD HERBERTH notified (see provider notification). Pt tolerating 2L NC. 1+ pitting edema noted to BLE. BS active in all 4 qauds. Wheezing noted during lung auscultation. VSS. No acute distress noted. Will continue to monitor.
[2017-12-21 06:44] LABS: POC Glucose,Bedside 138 mg/dL (70-110)
[2017-12-21 07:01] LABS: Basophils % 0.1 % (0.1-2.0); Eosinophils % 0.1 % (0.1-12.0); Hematocrit 44.5 % (42.0-52.0); Hemoglobin 14.2 g/dL (14.1-18.0); Lymphocytes # 0.3 K/mm3 (0.7-4.5); Lymphocytes % 2.1 K/mm3 (10-50); Mean Corpuscular HGB Conc 31.8 g/dL (31.8-35.4); Mean Corpuscular Hemoglobin 28.8 pg (27.0-31.2); Mean Corpuscular Volume 90.5 fl (80-94); Mean Platelet Volume 8.1 fl (7.4-10.4); Monocytes # 0.4 K/mm3 (0.1-1.0); Monocytes % 2.9 % (1.7-9.3); Neutrophils # 13.9 K/mm3 (1.8-7.8); Neutrophils % 94.8 % (37.0-80.0); Platelet Count 154 K/mm3 (142-424); Red Blood Count 4.92 M/mm3 (4.60-6.20); Red Cell Distribution Width 12.7 % (11.5-17.5); White Blood Count 14.7 K/mm3 (4.8-10.8)
[2017-12-21 07:09] LABS: MANUAL DIFFERENTIAL MANUAL DIFFERENTIAL (MANUAL DIFF)
--- NOTE | 2017-12-21 07:31 | PC.NURSE ---
REPORT GIVEN TO Marlee MENARD W/C
--- NOTE | 2017-12-21 07:52 | PC.NURSE ---
report to iam hui rn
--- NOTE | 2017-12-21 07:53 | HMH.ACPN2 ---
Internal Medicine - PN: Subj *Date: 12/21/17 *Time: 07:53 Interval history: Patient's breathing is somewhat better, and he and his are comfortable with him going home with home health and the assistance of their children. However yesterday he had a bloody tinged bowel movement and has had several of these through the night. He has one that he is left in the commode which consists of solid elements of stool with liquid bright red blood discoloring the entire toilet bowl. CT scan was done through the night but the reading is pending. Denies vomiting, denies abdominal pain. Exam Vital signs and Labs for Last 24 Hours: Temp Pulse Resp BP Pulse Ox 97.6 F 71 20 157/72 95 12/21/17 07:36 12/21/17 07:36 12/21/17 07:36 12/21/17 07:36 12/21/17 07:36 Laboratory Results - last 24 hr 12/20/17 06:15: Total Counted 100, Neutrophils % (Manual) 87 H, Band Neutrophils % 3.0, Lymphocytes % (Manual) 4 L, Atypical Lymphs % 1.0, Monocytes % (Manual) 5, Platelet Estimate Normal 12/20/17 11:46: POC Glucose 132 12/20/17 16:15: WBC 14.9 H, RBC 5.46, Hgb 15.5, Hct 49.1, MCV 90.0, MCH 28.4, MCHC 31.6 L, RDW 12.8, Plt Count 179, MPV 7.7, Neut % (Auto) 91.7 H, Lymph % (Auto) 1.9 L, [place] % (Auto) 5.9, Eos % (Auto) 0.3, Baso % (Auto) 0.1, Neut # (Auto) 13.7 H, Lymph # (Auto) 0.3 L, [place] # (Auto) 0.9, Eos # (Auto) 0.1, Baso # (Auto) 0.0, Total Counted 100, Neutrophils % (Manual) 89 H, Lymphocytes % (Manual) 8 L, Monocytes % (Manual) 3, Platelet Estimate Normal, RBC Morphology Normal 12/20/17 16:15: Lactic Acid 1.3 12/20/17 16:57: POC Glucose 116 12/20/17 20:59: POC Glucose 262 12/21/17 06:24: POC Glucose 138 12/21/17 06:30: WBC 14.7 H, RBC 4.92, Hgb 14.2, Hct 44.5, MCV 90.5, MCH 28.8, MCHC 31.8, RDW 12.7, Plt Count 154, MPV 8.1, Neut % (Auto) 94.8 H, Lymph % (Auto) 2.1 L, [place] % (Auto) 2.9, Eos % (Auto) 0.1, Baso % (Auto) 0.1, Neut # (Auto) 13.9 H, Lymph # (Auto) 0.3 L, [place] # (Auto) 0.4, Eos # (Auto) 0.0, Baso # (Auto) 0.0 I & O for Last 24 hours: Intake & Output 12/18/17 12/19/17 12/20/17 12/21/17 11:59 11:59 11:59 11:59 Intake Total 1690 / 1690 1260 / 1260 2030 / 2030 480 / 480 Output Total 4425 / 4425 3625 / 3625 2620 / 2620 1650 / 1650 Balance -2735 / -2735 -2365 / -2365 -590 / -590 -1170 / -1170 Weight 193 lb 4.01 oz Microbiology Reports for the Last 24 Hours: Microbiology 12/19/17 11:00 Sputum - Expectorated Sputum Gram Stain - Final 12/19/17 11:00 Sputum - Expectorated Sputum Sputum Culture - Final Yeast Narrative: Patient is alert. Pleasant. Breathing seems better, he is able to finish sentences and converse a little bit better. His lungs have rhonchi but better air movement than yesterday. Heart rate regular. Abdomen is soft, no tenderness. No distal edema. Assessment and Plan (1) COPD with acute exacerbation Current visit: Yes Status: Acute Category: Medical Code(s): J44.1 - Chronic obstructive pulmonary disease with (acute) exacerbation (2) Peripheral edema Current visit: Yes Status: Acute Category: Medical Code(s): R60.9 - Edema, unspecified (3) History of irregular heartbeat Current visit: Yes Status: Acute Category: Medical Code(s): Z86.79 - Personal history of other diseases of the circulatory system (4) Obstructive sleep apnea Current visit: Yes Status: Acute Category: Medical Code(s): G47.33 - Obstructive sleep apnea (adult) (pediatric) (5) Hypertension, essential Current visit: Yes Status: Acute Category: Medical Code(s): I10 - Essential (primary) hypertension (6) Generalized anxiety disorder Current visit: Yes Status: Acute Category: Medical Code(s): F41.1 - Generalized anxiety disorder (7) Bright red blood per rectum Current visit: Yes Status: Acute Category: Medical Code(s): K62.5 - Hemorrhage of anus and rectum - Assessment and plan all Dx Assessment and Plan for all problems:: P
--- NOTE | 2017-12-21 07:56 | P.PN_ITS ---
Internal Medicine - PN: Subj *Date: 12/21/17 *Time: 07:53 Interval history: Patient's breathing is somewhat better, and he and his are comfortable with him going home with home health and the assistance of their children. However yesterday he had a bloody tinged bowel movement and has had several of these through the night. He has one that he is left in the commode which consists of solid elements of stool with liquid bright red blood discoloring the entire toilet bowl. CT scan was done through the night but the reading is pending. Denies vomiting , denies abdominal pain. Exam Vital signs and Labs for Last 24 Hours: Temp Pulse Resp BP Pulse Ox 97.6 F 71 20 157/72 95 12/21/17 07:36 12/21/17 07:36 12/21/17 07:36 12/21/17 07:36 12/21/17 07:36 Laboratory Results - last 24 hr 12/20/17 06:15: Total Counted 100, Neutrophils % (Manual) 87 H, Band Neutrophils % 3.0, Lymphocytes % (Manual) 4 L, Atypical Lymphs % 1.0, Monocytes % (Manual) 5, Platelet Estimate Normal 12/20/17 11:46: POC Glucose 132 12/20/17 16:15: WBC 14.9 H, RBC 5.46, Hgb 15.5, Hct 49.1, MCV 90.0, MCH 28.4, MCHC 31.6 L, RDW 12.8, Plt Count 179, MPV 7.7, Neut % (Auto) 91.7 H, Lymph % ( Auto) 1.9 L, [place] % (Auto) 5.9, Eos % (Auto) 0.3, Baso % (Auto) 0.1, Neut # ( Auto) 13.7 H, Lymph # (Auto) 0.3 L, [place] # (Auto) 0.9, Eos # (Auto) 0.1, Baso # (Auto) 0.0, Total Counted 100, Neutrophils % (Manual) 89 H, Lymphocytes % ( Manual) 8 L, Monocytes % (Manual) 3, Platelet Estimate Normal, RBC Morphology Normal 12/20/17 16:15: Lactic Acid 1.3 12/20/17 16:57: POC Glucose 116 12/20/17 20:59: POC Glucose 262 12/21/17 06:24: POC Glucose 138 12/21/17 06:30: WBC 14.7 H, RBC 4.92, Hgb 14.2, Hct 44.5, MCV 90.5, MCH 28.8, MCHC 31.8, RDW 12.7, Plt Count 154, MPV 8.1, Neut % (Auto) 94.8 H, Lymph % (Auto ) 2.1 L, [place] % (Auto) 2.9, Eos % (Auto) 0.1, Baso % (Auto) 0.1, Neut # (Auto) 13.9 H, Lymph # (Auto) 0.3 L, [place] # (Auto) 0.4, Eos # (Auto) 0.0, Baso # (Auto ) 0.0 I & O for Last 24 hours: Intake & Output 12/18/17 12/19/17 12/20/17 12/21/17 11:59 11:59 11:59 11:59 Intake Total 1690 / 1690 1260 / 1260 2030 / 2030 480 / 480 Output Total 4425 / 4425 3625 / 3625 2620 / 2620 1650 / 1650 Balance -2735 / -2735 -2365 / -2365 -590 / -590 -1170 / -1170 Weight 193 lb 4.01 oz Microbiology Reports for the Last 24 Hours: Microbiology 12/19/17 11:00 Sputum - Expectorated Sputum Gram Stain - Final 12/19/17 11:00 Sputum - Expectorated Sputum Sputum Culture - Final Yeast Narrative: Patient is alert. Pleasant. Breathing seems better, he is able to finish sentences and converse a little bit better. His lungs have rhonchi but better air movement than yesterday. Heart rate regular. Abdomen is soft, no tenderness. No distal edema. Assessment and Plan (1) COPD with acute exacerbation Current visit: Yes Status: Acute Category: Medical Code(s): J44.1 - Chronic obstructive pulmonary disease with (acute) exacerbation (2) Peripheral edema Current visit: Yes Status: Acute Category: Medical Code(s): R60.9 - Edema , unspecified (3) History of irregular heartbeat Current visit: Yes Status: Acute Category: Medical Code(s): Z86.79 - Personal history of other diseases of the circulatory system (4) Obstructive sleep apnea Current visit: Yes Status: Acute Category: Medical Code(s): G47.33 - Obstructive sleep apnea (adult) (pediatric) (5) Hypertension, essential Current vis
[2017-12-21 08:18] LABS: Lymphocytes % 2 % (10-50); Monocytes % 3 % (2-9); Neutrophils % 95 % (42-76); Platelet Estimate Normal; Total Cells Counted 100
[2017-12-21 08:19] LABS: RBC Morphology Normal
--- NOTE | 2017-12-21 08:54 | SW/DCPLANNER ---
HAD CONVERSATION WITH PATIENT, AND SON REGARDING DISCHARGE PLAN: WANTS HIM TO RETURN HOME AFTER HIS STAY... THIS MORNING WHEN DR CHAVEZ WENT IN TO SEE HIM, HE HAD BLOOD IN HIS STOOL AND HE DID NOT DISCHARGE HIM TO HOME. DID REQUEST HIM TO HAVE HOME HEALTH SERVICES AND I SAT THIS UP WITH [facility]. DR CHAVEZ PLANS TO DISCHARGE HIM TMRW (SAT) PENDING HE DOESN'T HAVE ANY SETBACKS...
--- NOTE | 2017-12-21 09:15 | SW/DCPLANNER ---
RECEIVED REFERRAL FOR THIS PATIENT FOR HOME HEALTH SERVICES...PATIENT CHOSE [facility] AND THIS WAS SET UP SINCE PATIENT IS GOING TO DISCHARGE I HAVE ASKED FOR THE NURSE TO MAKE CONTACT WITH PATIENT AND START SERVICES THE FIRST OF NEXT WEEK... ANTICIPATED DISCHARGE IS FOR SAT...
--- NOTE | 2017-12-21 10:09 | HMH.GSCON ---
*Admission Date: 12/15/17 *Chief complaint: Bright red blood per rectum *History of present illness: This is an 82-year-old gentleman who was recently admitted for COPD exacerbation. He had convalesced well and was close to discharge. Over the past 24 hours he developed episodic bright red blood per rectum. No melena. No abdominal pain. He states that he did have a colonoscopy 2-3 years ago. He is not aware of hemorrhoidal disease or diverticulosis. Review of Systems - Constitutional Denies anorexia - Eyes Denies change in vision - ENT Denies change in voice - *Cardiovascular Denies chest pain - *Respiratory Reports shortness of breath with activity - *Gastrointestinal Denies abdominal pain - *Neurologic Denies abnormal walking, Denies abnormal hearing [facility] History Medical History: Reports:: Hyperlipidemia, Hypertension Denies:: Cancer, Diabetes Mellitus Type 1, Diabetes Mellitus Type 2, MRSA Other Medical History: Reports: Arthritis Other Surgeries: Yes: Colonoscopy, EGD Amputation: No Fractures: No - *Social History Educational Level: Attended College Smoking Status: Former smoker Tobacco Type: cigarettes Alcohol Intake: never Occupational Status: retired Housing: house Household Members: spouse - Psychiatric History Expresses thoughts of harming self/others: None Suicide Plan Description: No Plan *Family Hx:: Asthma, Hyperlipidemia, Hypertension Meds Home Medications Medication Instructions Recorded Confirmed Type Albuterol Sulfate [Albuterol 2.5 mg IH BID PRN 12/14/17 12/14/17 History 0.083% 2.5mg/3mL neb] Aspirin [Aspirin 81mg chewable 81 mg PO DAILY 12/14/17 12/14/17 History tab] Azelastine HCl [Azelastine Nasal 0.1 % NS BID 12/14/17 12/14/17 History [place] 30mL Bottle] Bisoprolol Fumarate [Zebeta 5mg 2.5 mg PO DAILY 12/14/17 12/14/17 History tablet] Furosemide [Furosemide 40MG tAB] 40 mg PO DAILY PRN 12/14/17 12/14/17 History Lisinopril [Lisinopril 20mg Tab] 20 mg PO DAILY 12/14/17 12/14/17 History Multivitamin [One Daily] 1 each PO DAILY 12/14/17 12/14/17 History Naproxen Sodium 220 mg PO DAILY PRN 12/14/17 12/14/17 History Pantoprazole Sodium [Protonix 40mg 40 mg PO DAILY 12/14/17 12/14/17 History tablet] Potassium Chloride [Klor-con 20 20 meq PO DAILY 12/14/17 12/14/17 History mEq tablet] Rosuvastatin Calcium 20 mg PO DAILY 12/14/17 12/14/17 History diazePAM [diazePAM 5mg Tablet] 5 mg PO BID PRN 12/14/17 12/14/17 History predniSONE [Deltasone 10mg 10 mg PO DAILY 12/14/17 12/14/17 History tablet] Fluticasone/Vilanterol [Breo 1 dose IH BID 12/15/17 12/15/17 History Ellipta 200-25 Mcg INH] Montelukast Sodium [Montelukast 10 mg PO HS 12/15/17 12/15/17 History 10mg Tab] Tiotropium [place] [Spiriva 1 dose IH DAILY 12/15/17 12/15/17 History Respimat] Allergies Allergy/AdvReac Type Severity Reaction Status Date / Time DUST Allergy Unknown Uncoded 09/18/17 14:51 HAY Allergy Unknown Uncoded 09/18/17 14:51 Exam Vital signs and Labs for Last 24 Hours: Temp Pulse Resp BP Pulse Ox 97.6 F 71 20 157/72 95 12/21/17 07:36 12/21/17 07:36 12/21/17 07:36 12/21/17 07:36 12/21/17 07:36 Laboratory Results - last 24 hr 12/20/17 11:46: POC Glucose 132 12/20/17 16:15: WBC 14.9 H, RBC 5.46, Hgb 15.5, Hct 49.1, MCV 90.0, MCH 28.4, MCHC 31.6 L, RDW 12.8, Plt Count 179, MPV 7.7, Neut % (Auto) 91.7 H, Lymph % (Auto) 1.9 L, [place] % (Auto) 5.9, Eos % (Auto) 0.3, Baso % (Auto) 0.1, Neut # (Auto) 13.7 H, Lymph # (Auto) 0.3 L, [place] # (Auto) 0.9, Eos # (Auto) 0.1, Baso # (Auto) 0.0, Total Counted 100, Neutrophils % (Manual) 89 H, Lymphocytes % (Manual) 8 L, Monocytes % (Manual) 3, Platelet Estimate Normal, RBC Morphology Normal 12/20/17 16:15: Lactic Acid 1.3 12/20/17 16:57: POC Glucose 116 12/20/17 20:59: POC Glucose 262 12/21/17 06:24: POC Glucose 138 12/21/17 06:30: WBC 14.7 H, RBC 4.92, Hgb 14.2, Hct 44.5, MCV 90.5, M
--- NOTE | 2017-12-21 10:14 | P.CONS_ITS ---
*Admission Date: 12/15/17 *Chief complaint: Bright red blood per rectum *History of present illness: This is an 82-year-old gentleman who was recently admitted for COPD exacerbation. He had convalesced well and was close to discharge. Over the past 24 hours he developed episodic bright red blood per rectum. No melena. No abdominal pain. He states that he did have a colonoscopy 2-3 years ago. He is not aware of hemorrhoidal disease or diverticulosis. Review of Systems - Constitutional Denies anorexia - Eyes Denies change in vision - ENT Denies change in voice - *Cardiovascular Denies chest pain - *Respiratory Reports shortness of breath with activity - *Gastrointestinal Denies abdominal pain - *Neurologic Denies abnormal walking, Denies abnormal hearing [facility] History Medical History: Reports:: Hyperlipidemia, Hypertension Denies:: Cancer, Diabetes Mellitus Type 1, Diabetes Mellitus Type 2, MRSA Other Medical History: Reports: Arthritis Other Surgeries: Yes: Colonoscopy, EGD Amputation: No Fractures: No - *Social History Educational Level: Attended College Smoking Status: Former smoker Tobacco Type: cigarettes Alcohol Intake: never Occupational Status: retired Housing: house Household Members: spouse - Psychiatric History Expresses thoughts of harming self/others: None Suicide Plan Description: No Plan *Family Hx:: Asthma, Hyperlipidemia, Hypertension Meds Home Medications Medication Instructions Recorded Confirmed Type Albuterol Sulfate [Albuterol 2.5 mg IH BID PRN 12/14/17 12/14/17 History 0.083% 2.5mg/3mL neb] Aspirin [Aspirin 81mg chewable 81 mg PO DAILY 12/14/17 12/14/17 History tab] Azelastine HCl [Azelastine Nasal 0.1 % NS BID 12/14/17 12/14/17 History [place] 30mL Bottle] Bisoprolol Fumarate [Zebeta 5mg 2.5 mg PO DAILY 12/14/17 12/14/17 History tablet] Furosemide [Furosemide 40MG tAB] 40 mg PO DAILY PRN 12/14/17 12/14/17 History Lisinopril [Lisinopril 20mg Tab] 20 mg PO DAILY 12/14/17 12/14/17 History Multivitamin [One Daily] 1 each PO DAILY 12/14/17 12/14/17 History Naproxen Sodium 220 mg PO DAILY PRN 12/14/17 12/14/17 History Pantoprazole Sodium [Protonix 40mg 40 mg PO DAILY 12/14/17 12/14/17 History tablet] Potassium Chloride [Klor-con 20 20 meq PO DAILY 12/14/17 12/14/17 History mEq tablet] Rosuvastatin Calcium 20 mg PO DAILY 12/14/17 12/14/17 History diazePAM [diazePAM 5mg Tablet] 5 mg PO BID PRN 12/14/17 12/14/17 History predniSONE [Deltasone 10mg 10 mg PO DAILY 12/14/17 12/14/17 History tablet] Fluticasone/Vilanterol [Breo 1 dose IH BID 12/15/17 12/15/17 History Ellipta 200-25 Mcg INH] Montelukast Sodium [Montelukast 10 mg PO HS 12/15/17 12/15/17 History 10mg Tab] Tiotropium [place] [Spiriva 1 dose IH DAILY 12/15/17 12/15/17 History Respimat] Allergies Allergy/AdvReac Type Severity Reaction Status Date / Time DUST Allergy Unknown Uncoded 09/18/17 14:51 HAY Allergy Unknown Uncoded 09/18/17 14:51 Exam Vital signs and Labs for Last 24 Hours: Temp Pulse Resp BP Pulse Ox 97.6 F 71 20 157/72 95 12/21/17 07:36 12/21/17 07:36 12/21/17 07:36 12/21/17 07:36 12/21/17 07:36 Laboratory Results - last 24 hr 12/20/17 11:46: POC Glucose
[2017-12-21 12:04] LABS: POC Glucose,Bedside 154 mg/dL (70-110)
--- NOTE | 2017-12-21 15:08 | DIET.NUTRFU ---
Pt has an excellent appetite with 100% PO intake at most meals. Pt with no new questions or nutritional concerns at this time. POC 138 this am. Will continue to monitor.
[2017-12-21 17:33] LABS: POC Glucose,Bedside 199 mg/dL (70-110)
[2017-12-22] VITALS (9 sets, daily range): BP systolic 127–146; BP diastolic 67–77; PULSE 74–91; RESP 20–24; TEMP 36.4–37.1; O2SAT 94–97
[2017-12-22 00:32] LABS: POC Glucose,Bedside 251 mg/dL (70-110)
--- NOTE | 2017-12-22 03:01 | PC.NURSE ---
Patient laying in bed resting at this time. Had some soa at beginning of shift on exacerbation. Just sitting up on side of bed was hard to perform. Lungs has wheezes, rhonchi and some fine crackles throughout. Resp are even and non labored at this time. Skin is pink, no cyanosis noted. Left arm has been weeping some at elbow. Lower ext has 1-2+ pitting edema. Cap refill < 3 sec. Patient has been up to bathroom one time this shift, one bowel movement noted with some blood in it. Abdomen very distended and firm.Bowel sounds x4. IV is patent. Done teaching over breathing exercises, s/sx of blood loss, complications of blood loss. Encouraged to use call light if any needs. Bed locked in low position, side rails up x 2. Will continue to monitor.
[2017-12-22 06:19] LABS: POC Glucose,Bedside 127 mg/dL (70-110)
[2017-12-22 07:03] LABS: Hematocrit 42.2 % (42.0-52.0); Hemoglobin 13.2 g/dL (14.1-18.0)
--- NOTE | 2017-12-22 08:12 | P.PN_ITS ---
Subjective Patient reports: feels better (He states that his bloody diarrhea stopped at about 11PM last night. No BMs this AM.) Exam Vital signs and Labs for Last 24 Hours: Temp Pulse Resp BP Pulse Ox 98.7 F 87 22 139/77 95 12/22/17 07:55 12/22/17 07:55 12/22/17 07:55 12/22/17 07:55 12/22/17 07:55 Laboratory Results - last 24 hr 12/21/17 06:30: Total Counted 100, Neutrophils % (Manual) 95 H, Lymphocytes % ( Manual) 2 L, Monocytes % (Manual) 3, Platelet Estimate Normal, RBC Morphology Normal 12/21/17 11:39: POC Glucose 154 12/21/17 17:21: POC Glucose 199 12/21/17 19:52: POC Glucose 251 12/22/17 06:08: POC Glucose 127 12/22/17 06:20: Hgb 13.2 L, Hct 42.2 I & O for Last 24 hours: Intake & Output 12/19/17 12/20/17 12/21/17 12/22/17 11:59 11:59 11:59 11:59 Intake Total 1260 / 1260 2130 / 2130 680 / 680 Output Total 3625 / 3625 2620 / 2620 1650 / 1650 Balance -2365 / -2365 -490 / -490 -970 / -970 Microbiology Reports for the Last 24 Hours: Microbiology 12/19/17 11:00 Sputum - Expectorated Sputum Gram Stain - Final 12/19/17 11:00 Sputum - Expectorated Sputum Sputum Culture - Final Yeast - Constitutional no acute distress - *Routine Respiratory Exam Absent: respiratory distress - *Routine Cardiovascular Exam Present: RRR - *Routine Abdominal Exam Present: soft Progress Note: A&P (1) COPD with acute exacerbation Status: Acute Current Visit: Yes (2) Peripheral edema Status: Acute Current Visit: Yes (3) History of irregular heartbeat Status: Acute Current Visit: Yes (4) Obstructive sleep apnea Status: Acute Current Visit: Yes (5) Hypertension, essential Status: Acute Current Visit: Yes (6) Generalized anxiety disorder Status: Acute Current Visit: Yes (7) Bright red blood per rectum Status: Acute Assessment and plan: H/H somewhat decreased this AM. Overall, improvement with regard to symptoms as per patient report. No need for urgent intervention. Continue to follow serial hemoglobin/hematocrit with repeat in a.m. Continue current medical therapy. Consideration of repeat colonoscopy and/or examination under anesthesia as an outpatient (particularly if symptoms recur/persist). Current Visit: Yes
--- NOTE | 2017-12-22 10:18 | P.PN_ITS ---
Internal Medicine - PN: Subj *Date: 12/22/17 *Time: 10:16 Interval history: Patient overall feels somewhat better. He is encouraged that his rectal bleeding has essentially stopped. Nursing staff reports that some bleeding is noted after cleansing after bowel movement. His lungs continue to have rhonchi but about the same. Heart rate regular. He has mild ankle edema. Exam Vital signs and Labs for Last 24 Hours: Temp Pulse Resp BP Pulse Ox 98.7 F 87 22 139/77 95 12/22/17 07:55 12/22/17 07:55 12/22/17 07:55 12/22/17 07:55 12/22/17 07:55 Laboratory Results - last 24 hr 12/21/17 11:39: POC Glucose 154 12/21/17 17:21: POC Glucose 199 12/21/17 19:52: POC Glucose 251 12/22/17 06:08: POC Glucose 127 12/22/17 06:20: Hgb 13.2 L, Hct 42.2 I & O for Last 24 hours: Intake & Output 12/19/17 12/20/17 12/21/17 12/22/17 11:59 11:59 11:59 11:59 Intake Total 1260 / 1260 2130 / 2130 680 / 680 100 / 100 Output Total 3625 / 3625 2620 / 2620 1650 / 1650 Balance -2365 / -2365 -490 / -490 -970 / -970 100 / 100 Microbiology Reports for the Last 24 Hours: Microbiology 12/19/17 11:00 Sputum - Expectorated Sputum Gram Stain - Final 12/19/17 11:00 Sputum - Expectorated Sputum Sputum Culture - Final Yeast Narrative: See notes as above. Assessment and Plan (1) COPD with acute exacerbation Current visit: Yes Status: Acute Category: Medical Code(s): J44.1 - Chronic obstructive pulmonary disease with (acute) exacerbation (2) Peripheral edema Current visit: Yes Status: Acute Category: Medical Code(s): R60.9 - Edema , unspecified (3) History of irregular heartbeat Current visit: Yes Status: Acute Category: Medical Code(s): Z86.79 - Personal history of other diseases of the circulatory system (4) Obstructive sleep apnea Current visit: Yes Status: Acute Category: Medical Code(s): G47.33 - Obstructive sleep apnea (adult) (pediatric) (5) Hypertension, essential Current visit: Yes Status: Acute Category: Medical Code(s): I10 - Essential (primary) hypertension (6) Generalized anxiety disorder Current visit: Yes Status: Acute Category: Medical Code(s): F41.1 - Generalized anxiety disorder (7) Bright red blood per rectum Current visit: Yes Status: Acute Category: Medical Code(s): K62.5 - Hemorrhage of anus and rectum - Assessment and plan all Dx Assessment and Plan for all problems:: Overall patient seems to be improving. Agree with surgical plan. Supportive care has calm down his bleeding which is most likely from a hemorrhoidal source. Blood counts have been stable. I'd like another day in the hospital to observe his blood counts and respiratory status, probable discharge home tomorrow with antibiotic and antifungal therapy given his temporally at least good response to antifungal therapy. We will also arrange 24 hour oxygen therapy. 0 (UNKNOWN)
[2017-12-22 11:36] LABS: POC Glucose,Bedside 231 mg/dL (70-110)
[2017-12-22 17:03] LABS: POC Glucose,Bedside 276 mg/dL (70-110)
--- NOTE | 2017-12-22 17:18 | PC.NURSE ---
PATIENT IS RESTING IN BED AT THIS TIME, BUT HAS BEEN UP TO THE CHAIR FOR MEALS. PATIENT MAY BE DISCHARGED TOMORROW. PATIENT IS EATING GOOD, LUNG SOUNDS CONTINUE TO BE WHEEZES, RHONCHI AND FINE CRACKLES. VITAL SIGNS ARE STABLE. PATIENT STATES HE HAS NOT HAD A BOWEL MOVEMENT TODAY. NO DISTRESS NOTED, WILL CONTINUE TO MONITOR.
--- NOTE | 2017-12-22 19:00 | PC.NURSE ---
REPORT GIVEN TO NIKKO VELEZ
--- NOTE | 2017-12-22 19:01 | PC.NURSE ---
1900 PATIENT JUST HAD A LARGE BM WITH BRIGHT RED BLOOD. PATIENT STATES IT WAS THE ONLY ONE FOR TODAY. PATIENT STATES HE IS WORRIED ABOUT PASSING SO MUCH BLOOD. WILL NOTIFY MD AND CONTINUE TO MONITOR.
[2017-12-22 21:33] LABS: POC Glucose,Bedside 219 mg/dL (70-110)
[2017-12-23] VITALS (10 sets, daily range): BP systolic 131–163; BP diastolic 59–86; PULSE 58–94; RESP 20–22; TEMP 36.4–36.9; O2SAT 89–96
--- NOTE | 2017-12-23 04:40 | PC.NURSE ---
PT HAS SLEPT. WEARING OXYGEN AT 2L PER NC. REQUESTED COUGH MED AT HS. PRODUCTIVE COUGH NOTED. PT HAS NOT REPORTED ANY MORE BLOODY STOOLS THIS SHIFT. VOIDING PER URINAL WITHOUT DIFFICULTY. NO SKIN ISSUES NOTED.
[2017-12-23 06:25] LABS: POC Glucose,Bedside 137 mg/dL (70-110)
[2017-12-23 07:20] LABS: Basophils % 0.1 % (0.1-2.0); Eosinophils % 0.1 % (0.1-12.0); Hemoglobin 12.7 g/dL (14.1-18.0); Lymphocytes # 0.3 K/mm3 (0.7-4.5); Lymphocytes % 1.5 K/mm3 (10-50); Mean Corpuscular HGB Conc 30.9 g/dL (31.8-35.4); Mean Corpuscular Hemoglobin 28.8 pg (27.0-31.2); Mean Corpuscular Volume 93.5 fl (80-94); Mean Platelet Volume 8.1 fl (7.4-10.4); Monocytes # 0.4 K/mm3 (0.1-1.0); Monocytes % 2.2 % (1.7-9.3); Neutrophils # 19.3 K/mm3 (1.8-7.8); Neutrophils % 96.1 % (37.0-80.0); Platelet Count 164 K/mm3 (142-424); Red Blood Count 4.39 M/mm3 (4.60-6.20); Red Cell Distribution Width 12.6 % (11.5-17.5)
[2017-12-23 07:22] LABS: White Blood Count 20.1 K/mm3 (4.8-10.8)
[2017-12-23 07:23] LABS: MANUAL DIFFERENTIAL MANUAL DIFFERENTIAL (MANUAL DIFF)
[2017-12-23 07:28] LABS: Anion Gap 4.5 mEq/L (5-15); Blood Urea Nitrogen 25 mg/dL (7-18); Chloride 98 mmol/L (98-107); Creatinine Clearance Estimated 73 mL/min (0-300); Creatinine,Serum 0.57 mg/dL (0.70-1.30); Estimated Glomerular Filt Rate 138 ml/min (>60); GFR (African American) 166 ML/MIN (>60); Glucose 158 mg/dL (74-106); Potassium 4.5 mmoL/L (3.5-5.1); Sodium 139 mmol/L (136-145)
[2017-12-23 07:35] LABS: Carbon Dioxide 41 mmol/L (21.0-32.0)
[2017-12-23 07:42] LABS: Lymphocytes % 2 % (10-50); Neutrophils % 97 % (42-76); Platelet Estimate Normal; RBC Morphology Normal; Total Cells Counted 100
--- NOTE | 2017-12-23 08:23 | HMH.GSPN ---
Subjective Patient reports: blood in stool (some blood yesterday evening...none since.) Exam Vital signs and Labs for Last 24 Hours: Temp Pulse Resp BP Pulse Ox 98.3 F 94 H 20 131/86 96 12/23/17 07:44 12/23/17 07:44 12/23/17 07:44 12/23/17 07:44 12/23/17 07:44 Laboratory Results - last 24 hr 12/22/17 11:06: POC Glucose 231 12/22/17 16:27: POC Glucose 276 12/22/17 21:20: POC Glucose 219 12/23/17 05:58: POC Glucose 137 12/23/17 06:30: WBC 20.1 H* D, RBC 4.39 L, Hgb 12.7 L, Hct 41.0 L, MCV 93.5, MCH 28.8, MCHC 30.9 L, RDW 12.6, Plt Count 164, MPV 8.1, Neut % (Auto) 96.1 H, Lymph % (Auto) 1.5 L, [place] % (Auto) 2.2, Eos % (Auto) 0.1, Baso % (Auto) 0.1, Neut # (Auto) 19.3 H, Lymph # (Auto) 0.3 L, [place] # (Auto) 0.4, Eos # (Auto) 0.0, Baso # (Auto) 0.0, Total Counted 100, Neutrophils % (Manual) 97 H, Lymphocytes % (Manual) 2 L, Atypical Lymphs % 1.0, Platelet Estimate Normal, RBC Morphology Normal 12/23/17 06:30: Sodium 139, Potassium 4.5, Chloride 98, Carbon Dioxide 41 H*, Anion Gap 4.5 L, BUN 25 H, Creatinine 0.57 L, Estimated Creat Clear 73, Estimated GFR 138, Est GFR ( Amer) 166, Glucose 158 H I & O for Last 24 hours: Intake & Output 12/20/17 12/21/17 12/22/17 12/23/17 11:59 11:59 11:59 11:59 Intake Total 2130 / 2130 680 / 680 100 / 100 1140 / 1140 Output Total 2620 / 2620 1650 / 1650 1900 / 1900 Balance -490 / -490 -970 / -970 100 / 100 -760 / -760 - Constitutional no acute distress - *Routine Respiratory Exam Absent: respiratory distress - *Routine Abdominal Exam Present: soft. Absent: tenderness Progress Note: A&P (1) COPD with acute exacerbation Status: Acute Current Visit: Yes (2) Peripheral edema Status: Acute Current Visit: Yes (3) History of irregular heartbeat Status: Acute Current Visit: Yes (4) Obstructive sleep apnea Status: Acute Current Visit: Yes (5) Hypertension, essential Status: Acute Current Visit: Yes (6) Generalized anxiety disorder Status: Acute Current Visit: Yes (7) Bright red blood per rectum Status: Acute Assessment and plan: Intermittent and most likely secondary to hemorrhoidal disease. Could be secondary to atypical colitis/enteritis or other pathology. Continue medical therapy. The risks of intervention such as exam under anesthesia or colonoscopy likely outweigh the current benefit. Further evaluation / intervention when more medically stable (unless needed emergently). Current Visit: Yes
--- NOTE | 2017-12-23 08:35 | HMH.ACPN2 ---
Internal Medicine - PN: Subj *Date: 12/23/17 *Time: 08:35 Interval history: Patient states he feels about the same, not much better and not much worse. Had one blood-tinged bowel movement yesterday evening. Hemoglobin/hematocrit counts are roughly the same this morning. His white blood cell count has increased. Renal functions unremarkable. Patient reports that he is having increasing amounts of expectorated sputum. Exam Vital signs and Labs for Last 24 Hours: Temp Pulse Resp BP Pulse Ox 98.3 F 94 H 20 131/86 96 12/23/17 07:44 12/23/17 07:44 12/23/17 07:44 12/23/17 07:44 12/23/17 07:44 Laboratory Results - last 24 hr 12/22/17 11:06: POC Glucose 231 12/22/17 16:27: POC Glucose 276 12/22/17 21:20: POC Glucose 219 12/23/17 05:58: POC Glucose 137 12/23/17 06:30: WBC 20.1 H* D, RBC 4.39 L, Hgb 12.7 L, Hct 41.0 L, MCV 93.5, MCH 28.8, MCHC 30.9 L, RDW 12.6, Plt Count 164, MPV 8.1, Neut % (Auto) 96.1 H, Lymph % (Auto) 1.5 L, [place] % (Auto) 2.2, Eos % (Auto) 0.1, Baso % (Auto) 0.1, Neut # (Auto) 19.3 H, Lymph # (Auto) 0.3 L, [place] # (Auto) 0.4, Eos # (Auto) 0.0, Baso # (Auto) 0.0, Total Counted 100, Neutrophils % (Manual) 97 H, Lymphocytes % (Manual) 2 L, Atypical Lymphs % 1.0, Platelet Estimate Normal, RBC Morphology Normal 12/23/17 06:30: Sodium 139, Potassium 4.5, Chloride 98, Carbon Dioxide 41 H*, Anion Gap 4.5 L, BUN 25 H, Creatinine 0.57 L, Estimated Creat Clear 73, Estimated GFR 138, Est GFR ( Amer) 166, Glucose 158 H I & O for Last 24 hours: Intake & Output 12/20/17 12/21/17 12/22/17 12/23/17 11:59 11:59 11:59 11:59 Intake Total 2130 / 2130 680 / 680 100 / 100 1140 / 1140 Output Total 2620 / 2620 1650 / 1650 1900 / 1900 Balance -490 / -490 -970 / -970 100 / 100 -760 / -760 Narrative: Patient overall looks slightly better, continues to have dyspnea with walking around the room. I think this is actually his baseline. He has thick rhonchi in his chest but symmetric air entry. Coughing up stephani green/brown sputum without blood. Abdomen is soft and nontender. Heart rate is regular and without murmurs. Assessment and Plan (1) COPD with acute exacerbation Current visit: Yes Status: Acute Category: Medical Code(s): J44.1 - Chronic obstructive pulmonary disease with (acute) exacerbation (2) Peripheral edema Current visit: Yes Status: Acute Category: Medical Code(s): R60.9 - Edema, unspecified (3) History of irregular heartbeat Current visit: Yes Status: Acute Category: Medical Code(s): Z86.79 - Personal history of other diseases of the circulatory system (4) Obstructive sleep apnea Current visit: Yes Status: Acute Category: Medical Code(s): G47.33 - Obstructive sleep apnea (adult) (pediatric) (5) Hypertension, essential Current visit: Yes Status: Acute Category: Medical Code(s): I10 - Essential (primary) hypertension (6) Generalized anxiety disorder Current visit: Yes Status: Acute Category: Medical Code(s): F41.1 - Generalized anxiety disorder (7) Bright red blood per rectum Current visit: Yes Status: Acute Category: Medical Code(s): K62.5 - Hemorrhage of anus and rectum - Assessment and plan all Dx Assessment and Plan for all problems:: Significant COPD exacerbation with end-stage disease. Overlay of fungal elements on Gram stain. On antifungal and antibiotics. Increased white cell count is bothersome but I am not sure it represents worsening infection as clinically he looks better. I will check again tomorrow. Continue current therapy. Once again do another sputum culture. I do not think the rectal bleeding represents a serious abdominal pathology, agree with surgical note. I think patient is very close to his baseline. Probable discharge tomorrow with home health unless labs indicate otherwise. 0 (UNKNOWN)
--- NOTE | 2017-12-23 11:02 | PC.NURSE ---
1050 patient had another bowel movement with blood, bowel movement was formed. will continue to monitor.
[2017-12-23 11:55] LABS: POC Glucose,Bedside 259 mg/dL (70-110)
--- NOTE | 2017-12-23 13:47 | PC.NURSE ---
3400 PATIENT HAD ANOTHER BLOODY BOWEL MOVEMENT, STOOL WAS FORMED, WILL CONTINUE TO MONITOR
[2017-12-23 16:55] LABS: POC Glucose,Bedside 204 mg/dL (70-110)
--- NOTE | 2017-12-23 17:38 | PC.NURSE ---
PATIENT HAS BEEN UP TO THE CHAIR TODAY, AT PRESENT HE IS SITTING UP AT BEDSIDE. PATIENT CONTINUES TO HAVE A PRODUCTIVE COUGH WITH GREENISH-YELLOW SPUTUM . PATIENT HAS HAD TWO BLOODY BOWEL MOVEMENTS TODAY WITH FORMED STOOL AND HIS H&H CONTINUES TO DECLINE. VITAL SIGNS ARE STABLE, LUNGS CONTINUE TO SOUND WHEEZES, RHONCHI AND CRACKLES. PATIENT STATES HE FEELS LIKE THE LONGER HE STAYS HERE THE WORST HE GETS. NO DISTRESS NOTED AT THIS TIME. DENIES ANY NEEDS. WILL CONTINUE TO MONITOR.
--- NOTE | 2017-12-23 19:07 | PC.NURSE ---
REPORT GIVEN TO NIKKO VELEZ
[2017-12-23 21:02] LABS: POC Glucose,Bedside 214 mg/dL (70-110)
[2017-12-24] VITALS (7 sets, daily range): BP systolic 139–156; BP diastolic 74–78; PULSE 72–94; RESP 20–22; TEMP 36.4–36.6; O2SAT 85–95
--- NOTE | 2017-12-24 04:30 | PC.NURSE ---
PT HAS SLEPT. NO REPORTED BMS THIS SHIFT. VOIDING PER URINAL ADEQUATE OUTPUT. CONTINUES ON 2L PER NC. REQUESTED COUGH MED AT HS.
[2017-12-24 06:15] LABS: POC Glucose,Bedside 168 mg/dL (70-110)
--- NOTE | 2017-12-24 07:45 | HMH.GSPN ---
Subjective Patient reports: other (feels about the same ...no blood per rectum in a while .) Exam Vital signs and Labs for Last 24 Hours: Temp Pulse Resp BP Pulse Ox 97.9 F 81 20 156/78 94 L 12/24/17 07:39 12/24/17 07:39 12/24/17 07:39 12/24/17 07:39 12/24/17 07:39 Laboratory Results - last 24 hr 12/23/17 11:12: POC Glucose 259 12/23/17 16:31: POC Glucose 204 12/23/17 20:40: POC Glucose 214 12/24/17 06:01: POC Glucose 168 I & O for Last 24 hours: Intake & Output 12/21/17 12/22/17 12/23/17 12/24/17 11:59 11:59 11:59 11:59 Intake Total 680 / 680 200 / 200 1140 / 1140 1480 / 1480 Output Total 1650 / 1650 1900 / 1900 1200 / 1200 Balance -970 / -970 200 / 200 -760 / -760 280 / 280 Microbiology Reports for the Last 24 Hours: Microbiology 12/23/17 11:00 Sputum - Expectorated Sputum Gram Stain - Final - Constitutional no acute distress - *Routine Respiratory Exam Comments: unchanged - *Routine Abdominal Exam Present: soft. Absent: tenderness Progress Note: A&P (1) COPD with acute exacerbation Status: Acute Current Visit: Yes (2) Peripheral edema Status: Acute Current Visit: Yes (3) History of irregular heartbeat Status: Acute Current Visit: Yes (4) Obstructive sleep apnea Status: Acute Current Visit: Yes (5) Hypertension, essential Status: Acute Current Visit: Yes (6) Generalized anxiety disorder Status: Acute Current Visit: Yes (7) Bright red blood per rectum Status: Acute Assessment and plan: Likely secondary to hemorrhoids...improving on current therapy F/U AM labs Current Visit: Yes
[2017-12-24 08:06] LABS: Basophils % 0.1 % (0.1-2.0); Eosinophils # 0.1 K/mm3 (0.0-0.4); Eosinophils % 0.2 % (0.1-12.0); Hematocrit 39.1 % (42.0-52.0); Hemoglobin 12.3 g/dL (14.1-18.0); Lymphocytes # 0.3 K/mm3 (0.7-4.5); Lymphocytes % 1.4 K/mm3 (10-50); Mean Corpuscular HGB Conc 31.4 g/dL (31.8-35.4); Mean Corpuscular Hemoglobin 29.2 pg (27.0-31.2); Mean Corpuscular Volume 93.2 fl (80-94); Mean Platelet Volume 8.5 fl (7.4-10.4); Monocytes # 0.5 K/mm3 (0.1-1.0); Monocytes % 2.6 % (1.7-9.3); Neutrophils # 18.6 K/mm3 (1.8-7.8); Neutrophils % 95.7 % (37.0-80.0); Platelet Count 169 K/mm3 (142-424); Red Blood Count 4.19 M/mm3 (4.60-6.20); Red Cell Distribution Width 12.6 % (11.5-17.5); White Blood Count 19.4 K/mm3 (4.8-10.8)
[2017-12-24 08:07] LABS: MANUAL DIFFERENTIAL MANUAL DIFFERENTIAL (MANUAL DIFF)
[2017-12-24 08:10] LABS: Anion Gap 4.6 mEq/L (5-15); Blood Urea Nitrogen 24 mg/dL (7-18); Carbon Dioxide 42 mmol/L (21.0-32.0); Chloride 95 mmol/L (98-107); Creatinine Clearance Estimated 73 mL/min (0-300); Creatinine,Serum 0.75 mg/dL (0.70-1.30); Estimated Glomerular Filt Rate 100 ml/min (>60); GFR (African American) 121 ML/MIN (>60); Glucose 298 mg/dL (74-106); Potassium 4.6 mmoL/L (3.5-5.1); Sodium 137 mmol/L (136-145)
--- NOTE | 2017-12-24 08:26 | HMH.DCSUM ---
General - General Admission date: 12/15/17 Discharge date: 12/24/17 HPI HPI: 82-year-old white male, patient of Dr. Gene Antony, with significant COPD, who has pickwickian syndrome, obstructive sleep apnea and nocturnal oxygen therapy as well as home nebulizer treatments who has been treated by Dr. Antony twice as an outpatient with antibiotics for an steroid therapy for COPD exacerbations. These have helped, minimally, but patient went back to Dr. Antony's office on the day of admission and had consistent tachypnea, tachycardia, cough with sputum production, and we elected to admit to the hospital for IV therapy given failure of outpatient therapy ?2. See admission H&P for details. Hospital Course Hospital Course: Patient had a long hospital course, marked by very very slow improvement in his pulmonary status. He required oxygen therapy throughout his admission here. Chest x-ray showed infiltrate, he coughed up copious amounts of dark sputum, but no bacterial cultures were obtained. Yeast was cultured out of his second sputum, and given his very slow failure to improve on antibiotics Diflucan therapy was started which seemed to help him somewhat. Of note PCR test showed metapneumovirus but no evidence of influenza or other pathogens on our PCR panel. Dr. Alvarado from pulmonary evaluated him, please see his consult note which I appreciated. One day before he was scheduled to be home he had rectal bleeding. His discharge was held and surgery evaluated him, he did not drop his blood counts and they felt this was most likely from hemorrhoidal bleeding and recommended supportive care. This seemed to improve his situation. This morning he is dyspneic, states that he just does not feel much better, continues to be dyspneic with any kind of activity and continues to cough up sputum. At this point, I believe this is his new baseline from what appears to be severe/end-stage emphysema as well as a component of bronchiectasis that was seen on his CAT scan. At this point we will discharge him home on prednisone therapy, no antibiotics given his 10 days of antibiotics here, 5 days of Diflucan, oxygen therapy as needed and home health for physical therapy/Occupational Therapy and home safety evaluation. Will follow up with Dr. Antony in 4 days. Objective Vital signs: Temp Pulse Resp BP Pulse Ox 97.9 F 81 20 156/78 94 L 12/24/17 07:39 12/24/17 07:39 12/24/17 07:39 12/24/17 07:39 12/24/17 07:39 Narrative: Patient is sitting on the side of the bed, alert, pleasant, talkative, coughing up green sputum. Lungs have rhonchi throughout but at baseline. No crackles, heart rate regular. He has trace ankle edema. No JVD. Heart rate is regular. Abdomen is obese but soft. Results Labs on day of discharge: Labs from last 24 hours 12/24/17 12/24/17 12/24/17 07:55 07:55 06:01 WBC 19.4 H RBC 4.19 L Hgb 12.3 L Hct 39.1 L MCV 93.2 MCH 29.2 MCHC 31.4 L RDW 12.6 Plt Count 169 MPV 8.5 Neut % (Auto) 95.7 H Lymph % (Auto) 1.4 L Petroleum % (Auto) 2.6 Eos % (Auto) 0.2 Baso % (Auto) 0.1 Neut # (Auto) 18.6 H Lymph # (Auto) 0.3 L Petroleum # (Auto) 0.5 Eos # (Auto) 0.1 Baso # (Auto) 0.0 Sodium 137 Potassium 4.6 Chloride 95 L Carbon Dioxide 42 H* Anion Gap 4.6 L BUN 24 H Creatinine 0.75 D Estimated Creat Clear 73 Estimated GFR 100 Est GFR ( Amer) 121 D Glucose 298 H POC Glucose 168 12/23/17 12/23/17 12/23/17 20:40 16:31 11:12 WBC RBC Hgb Hct MCV MCH MCHC RDW Plt Count MPV Neut % (Auto) Lymph % (Auto) Petroleum % (Auto) Eos % (Auto) Baso % (Auto) Neut # (Auto) Lymph # (Auto) Petroleum # (Auto) Eos # (Auto) Baso # (Auto) Sodium Potassium Chloride Carbon Dioxide Anion Gap BUN Creatinine Estimated Creat Clear Estim
--- NOTE | 2017-12-24 08:29 | P.DS_ITS ---
General - General Admission date: 12/15/17 Discharge date: 12/24/17 HPI HPI: 82-year-old white male, patient of Dr. Gene Antony, with significant COPD, who has pickwickian syndrome, obstructive sleep apnea and nocturnal oxygen therapy as well as home nebulizer treatments who has been treated by Dr. Antony twice as an outpatient with antibiotics for an steroid therapy for COPD exacerbations. These have helped, minimally, but patient went back to Dr. Antony's office on the day of admission and had consistent tachypnea, tachycardia, cough with sputum production, and we elected to admit to the hospital for IV therapy given failure of outpatient therapy ?2. See admission H&P for details. Hospital Course Hospital Course: Patient had a long hospital course, marked by very very slow improvement in his pulmonary status. He required oxygen therapy throughout his admission here. Chest x-ray showed infiltrate, he coughed up copious amounts of dark sputum, but no bacterial cultures were obtained. Yeast was cultured out of his second sputum, and given his very slow failure to improve on antibiotics Diflucan therapy was started which seemed to help him somewhat. Of note PCR test showed metapneumovirus but no evidence of influenza or other pathogens on our PCR panel. Dr. Alvarado from pulmonary evaluated him, please see his consult note which I appreciated. One day before he was scheduled to be home he had rectal bleeding. His discharge was held and surgery evaluated him, he did not drop his blood counts and they felt this was most likely from hemorrhoidal bleeding and recommended supportive care. This seemed to improve his situation. This morning he is dyspneic, states that he just does not feel much better, continues to be dyspneic with any kind of activity and continues to cough up sputum. At this point, I believe this is his new baseline from what appears to be severe /end-stage emphysema as well as a component of bronchiectasis that was seen on his CAT scan. At this point we will discharge him home on prednisone therapy, no antibiotics given his 10 days of antibiotics here, 5 days of Diflucan, oxygen therapy as needed and home health for physical therapy/Occupational Therapy and home safety evaluation. Will follow up with Dr. Antony in 4 days. Objective Vital signs: Temp Pulse Resp BP Pulse Ox 97.9 F 81 20 156/78 94 L 12/24/17 07:39 12/24/17 07:39 12/24/17 07:39 12/24/17 07:39 12/24/17 07:39 Narrative: Patient is sitting on the side of the bed, alert, pleasant, talkative, coughing up green sputum. Lungs have rhonchi throughout but at baseline. No crackles, heart rate regular. He has trace ankle edema. No JVD. Heart rate is regular. Abdomen is obese but soft. Results Labs on day of discharge: Labs from last 24 hours 12/24/17 12/24/17 12/24/17 07:55 07:55 06:01 WBC 19.4 H RBC 4.19 L Hgb 12.3 L Hct 39.1 L MCV 93.2 MCH 29.2 MCHC 31.4 L RDW 12.6 Plt Count 169 MPV 8.5 Neut % (Auto) 95.7 H Lymph % (Auto) 1.4 L Dickinson % (Auto) 2.6 Eos % (Auto) 0.2 Baso % (Auto) 0.1 Neut # (Auto) 18.6 H Lymph # (Auto) 0.3 L Dickinson # (Auto) 0.5 Eos # (Auto) 0.1 Baso # (Auto) 0.0 Sodium 137 Potassium 4.6 Chloride 95 L Carbon Dioxide 42 H*
--- NOTE | 2017-12-24 09:40 | SW/DCPLANNER ---
RECEIVED REFERRAL FOR HOME 02 FOR THIS PATIENT: PATIENT CHOSE [facility]CE HE ALREADY HAS NIGHT TIME 02 ALREADY SET UP... MR PATEL IS DISCHARGING HOME TODAY AND HOME HEALTH WILL START [facility] () AND A PORTABLE WILL BE DELIVERED PRIOR TO HIM LEAVING THE HOSPITAL...
[2017-12-24 10:06] LABS: Monocytes % 3 % (2-9); Neutrophils % 97 % (42-76); Total Cells Counted 100
[2017-12-24 10:07] LABS: Hypochromasia 2+
[2017-12-24 10:10] LABS: Platelet Estimate Normal
[2017-12-24 11:46] LABS: POC Glucose,Bedside 182 mg/dL (70-110)
== END 2017-12-24 13:25 | disposition home health service (06) ==
PROVIDERS: Family Medicine; Internal Medicine; Nurse Practitioner Family; Surgery; Admitting Provider Internal Medicine Adolescent Medicine; PCP Internal Medicine; Visit Provider Internal Medicine Adolescent Medicine
DX: J44.1 Chronic obstructive pulmonary disease with (acute) exacerbation (principal); R60.9 Edema, unspecified; I10 Essential (primary) hypertension; F41.1 Generalized anxiety disorder; I49.9 Cardiac arrhythmia, unspecified; J30.89 Other allergic rhinitis; B37.89 Other sites of candidiasis; E66.2 Morbid (severe) obesity with alveolar hypoventilation; K64.9 Unspecified hemorrhoids; Z87.891 Personal history of nicotine dependence; Z82.5 Family history of asthma and other chronic lower respiratory diseases; Z82.49 Family history of ischemic heart disease and other diseases of the circulatory system; Z83.49 Family history of other endocrine, nutritional and metabolic diseases; Z79.82 Long term (current) use of aspirin; Z79.52 Long term (current) use of systemic steroids; Z79.899 Other long term (current) drug therapy; Z99.81 Dependence on supplemental oxygen; Z79.51 Long term (current) use of inhaled steroids; Z68.31 Body mass index [BMI] 31.0-31.9, adult
CPT/HCPCS: 36415; 71046; 71275; 74176; 80048; 80053; 82962; 83605; 85007; 85014; 85018; 85025; 85378; 86738; 87040; 87070; 87106; 87205; 87275; 87276; 87486; 87581; 87633; 87798; 93005; 93306; 94640; 94761; 97161; G0378; J2543; Q9967